=== PATIENT | male | born 1940 | race American Indian/Alaskan Native ===

== ENCOUNTER 2018-06-08 02:07 | Inpatient (IN) | payer MEDICARE, OTHER ==
[2018-06-08] MEDS ORDERED: NACL 0.9% 500 ML 500 ML IV ONE (02:27)
[2018-06-08] MEDS ORDERED: DUONEB *Not for PRN Use IH ONE (02:29)
[2018-06-08] MEDS ORDERED: ATIVAN ONE (02:43)
[2018-06-08] MEDS: ATIVAN IV ONE ×2 (02:49→07:35)
[2018-06-08] MEDS ORDERED: CARDIZEM IV ONE ×2 (02:51→02:52)
[2018-06-08 03:12] LABS: Basophils % (Auto) 0.8 % (0.0-1.8); Eosinophils # (Auto) 0.1 K/mm3 (0.0-0.4); Eosinophils % (Auto) 1.2 % (0.0-4.3); Hematocrit 41.2 % (35.5-45.6); Hemoglobin 13.5 gm/dl (11.8-15.2); Lymphocytes # (Auto) 2.3 K/mm3 (1.2-5.4); Mean Corpuscular HGB Conc 33 % (32-34); Mean Corpuscular Volume 97 fl (84-94); Monocytes # (Auto) 0.4 K/mm3 (0.0-0.8); Monocytes % (Auto) 8.2 % (0.0-7.3); Platelet Count 181 K/mm3 (140-440); Red Blood Count 4.26 M/mm3 (3.65-5.03); Red Cell Distribution Width 15.7 % (13.2-15.2)
[2018-06-08 03:15] LABS: Bilirubin,Urine NEG (Negative); Blood,Urine SM (Negative); Color,Urine Yellow (Yellow); Mucus,Urine FEW /HPF
[2018-06-08 03:33] LABS: Alanine Aminotransferase 22 units/L (7-56); Albumin 4.3 g/dL (3.9-5); BUN/Creatinine Ratio 20; Blood Urea Nitrogen 10 mg/dL (9-20); Calcium 9.6 mg/dL (8.4-10.2); Hemolysis Index 17
[2018-06-08] MEDS ORDERED: LASIX IV ONE (03:56)
--- NOTE | 2018-06-08 03:56 | XRay Report ---
FINAL REPORT PROCEDURE: XR CHEST 1V AP TECHNIQUE: Chest radiograph anteroposterior view. CPT 71503 HISTORY: cough, wheezing COMPARISON: No prior studies are available for comparison. FINDINGS: Heart: The heart size is enlarged. Mediastinum/Vessels: Normal. Lungs/Pleural space: Mild vascular congestion with bilateral lower lung atelectasis. No effusion or p neumothorax. Bony thorax: No acute osseous abnormality. Life support devices: None. IMPRESSION: Vascular congestion with bilateral lower lung atelectasis. Moderate cardiomegaly..
[2018-06-08] MEDS ORDERED: CARDIZEM 100 MG in D5W 80 ML IV SCH (04:00)
--- NOTE | 2018-06-08 04:03 | Emergency Department Report ---
ED Shortness of Breath HPI - General Chief Complaint: Medical Clearance Stated Complaint: FALL Time Seen by Provider: 06/08/18 02:24 Source: EMS Mode of arrival: Ambulatory Limitations: Altered Mental Status - History of Present Illness Initial Comments: Patient is a 78-year-old Male who is presenting from half-way for shortness of breath. Patient has a history of dementia diabetes hypertension as well as atrial fibrillation. Patient was noted to have a minor ground-level fall with no obvious signs of injury last night. Several hours later he was noted to have been combative with staff and was given Haldol. On arrival patient is inspiratory respiratory distress and is agitated. Patient has audible wheezing. Patient's according to records given has not had any nausea vomiting diarrhea time. It is unknown whether the patient has any chest pain. - Related Data Allergies Allergy/AdvReac Type Severity Reaction Status Date / Time No Known Allergies Allergy Verified 06/08/18 02:45 ED Review of Systems ROS: Stated complaint: FALL Other details as noted in HPI Comment: Unobtainable due to pts medical conditions ED Past Medical Hx - Past Medical History Hx Hypertension: Yes Hx Congestive Heart Failure: No Hx Diabetes: Yes Hx Dementia: Yes Additional medical history: Atrial Fibrillation - Social History Smoking Status: Former Smoker Substance Use Type: None ED Physical Exam - General Limitations: Altered Mental Status General appearance: alert, anxious - Head Head exam: Present: atraumatic, normocephalic - Eye Eye exam: Present: normal appearance, PERRL, EOMI - ENT ENT exam: Present: normal orophraynx, mucous membranes moist - Neck Neck exam: Present: normal inspection - Respiratory Respiratory exam: Present: respiratory distress, wheezes, rales. Absent: normal lung sounds bilaterally, rhonchi, stridor, accessory muscle use - Cardiovascular Cardiovascular Exam: Present: tachycardia, irregular rhythm. Absent: regular rate, normal rhythm, systolic murmur, diastolic murmur, rubs, gallop - GI/Abdominal GI/Abdominal exam: Present: soft, normal bowel sounds. Absent: distended, tenderness, guarding, rebound, rigid - Rectal Rectal exam: Present: deferred - Extremities Exam Extremities exam: Present: normal inspection - Back Exam Back exam: Present: normal inspection - Neurological Exam Neurological exam: Present: alert, altered (hx of demential) - Psychiatric Psychiatric exam: Present: normal affect, normal mood - Skin Skin exam: Present: warm, dry, intact, normal color. Absent: rash ED Course Vital Signs 06/08/18 06/08/18 06/08/18 02:24 02:46 02:50 Pulse Rate 175 H 163 H Pulse Rate [ Posterior] Respiratory 22 28 H Rate Respiratory Rate [Posterior ] Blood Pressure 117/81 Blood Pressure 117/81 [Right] O2 Sat by Pulse 100 98 100 Oximetry 06/08/18 06/08/18 06/08/18 02:51 02:52 03:00 Pulse Rate 114 H Pulse Rate [ 87 Posterior] Respiratory 28 H Rate Respiratory 22 Rate [Posterior ] Blood Pressure 141/86 Blood Pressure [Right] O2 Sat by Pulse 100 97 Oximetry 06/08/18 06/08/18 03:04 03:16 Pulse Rate 163 H 108 H Pulse Rate [ Posterior] Respiratory 20 Rate Respiratory Rate [Posterior ] Blood Pressure 117/81 116/88 Blood Pressure [Right] O2 Sat by Pulse 98 Oximetry ED Medical Decision Making - Lab Data Result diagrams: 06/08/18 02:51 06/08/18 02:51 Lab Results 06/08/18 06/08/18 06/08/18 Range/Units 02:27 02:51 02:51 WBC 4.6 (4.5-11.0) K/mm3 RBC 4.26 (3.65-5.03) M/mm3 Hgb 13.5 (11.8-15.2) gm/dl Hct 41.2 (35.5-45.6) % MCV 97 H (84-94) fl MCH 32 (28-32) pg MCHC 33 (32-34) % RDW 15.7 H (13.2-15.2) % Plt Count 181 (140-440) K/mm3 Lymph % (Auto) 49.0 H (13.4-35.0) % [place] % (Auto) 8.2 H (0.0-7.3) % Eos % (Auto) 1.2 (0.0-4.3) % Baso % (Auto) 0.8 (0.0-1.8) % Lymph # 2.3 (1.2-5.4) K/mm3 [place] # 0.4 (0.0-0.8) K/mm3 Eos # 0.1 (0.0-0.4) K/mm3 Baso # 0.0 (0.0-0.1) K/mm3 Seg Neutrophils % 40.8 (40.0-70.0) % Seg Neutrophils # 1.9 (1.8-7.7) K/mm3 Sodium 143 (137-145) mmol/L Potassium 3.9 (3.6-5.0) mmol/L Chloride 102.6 (98-107) mmol/L Carbon Dioxide 26 (22-30) mmol/L Anion Gap 18 mmol/L BUN 10 (9-20) mg/dL Creatinine 0.5 L (0.8-1.5) mg/dL Estimated GFR > 60 ml/min BUN/Creatinine Ratio 20 % Glucose 144 H (75-100) mg/dL Lactic Acid (0.7-2.0) mmol/L Calcium 9.6 (8.4-10.2) mg/dL Total Bilirubin 1.00 (0.1-1.2) mg/dL AST 27 (5-40) units/L ALT 22 (7-56) units/L Alkaline Phosphatase 45 (35-129) units/L Troponin T (0.00-0.029) ng/mL NT-Pro-B Natriuret Pep (0-900) pg/mL Total Protein 7.4 (6.3-8.2) g/dL Albumin 4.3 (3.9-5) g/dL Albumin/Globulin Ratio 1.4 % Urine Color Yellow (Yellow) Urine Turbidity Clear (Clear) Urine pH 5.0 (5.0-7.0) Ur Specific [place] 1.018 (1.003-1.030) Urine Protein 100 mg/dl (Negative) mg/dL Urine Glucose (UA) Neg (Negative) mg/dL Urine Ketones Neg (Negative) mg/dL Urine Blood Sm (Negative) Urine Nitrite Neg (Negative) Urine Bilirubin Neg (Negative) Urine Urobilinogen 2.0 (<2.0) mg/dL Ur Leukocyte Esterase Neg (Negative) Urine WBC (Auto) 3.0 (0.0-6.0) /HPF Urine RBC (Auto) 8.0 (0.0-6.0) /HPF Urine Mucus Few /HPF 06/08/18 06/08/18 Range/Units 02:51 02:56 WBC (4.5-11.0) K/mm3 RBC (3.65-5.03) M/mm3 Hgb (11.8-15.2) gm/dl Hct (35.5-45.6) % MCV (84-94) fl MCH (28-32) pg MCHC (32-34) % RDW (13.2-15.2) % Plt Count (140-440) K/mm3 Lymph % (Auto) (13.4-35.0) % [place] % (Auto) (0.0-7.3) % Eos % (Auto) (0.0-4.3) % Baso % (Auto) (0.0-1.8) % Lymph # (1.2-5.4) K/mm3 [place] # (0.0-0.8) K/mm3 Eos # (0.0-0.4) K/mm3 Baso # (0.0-0.1) K/mm3 Seg Neutrophils % (40.0-70.0) % Seg Neutrophils # (1.8-7.7) K/mm3 Sodium (137-145) mmol/L Potassium (3.6-5.0) mmol/L Chloride (98-107) mmol/L Carbon Dioxide (22-30) mmol/L Anion Gap mmol/L BUN (9-20) mg/dL Creatinine (0.8-1.5) mg/dL Estimated GFR ml/min BUN/Creatinine Ratio % Glucose (75-100) mg/dL Lactic Acid 2.30 H* (0.7-2.0) mmol/L Calcium (8.4-10.2) mg/dL Total Bilirubin (0.1-1.2) mg/dL AST (5-40) units/L ALT (7-56) units/L Alkaline Phosphatase (35-129) units/L Troponin T < 0.010 (0.00-0.029) ng/mL NT-Pro-B Natriuret Pep 8694 H (0-900) pg/mL Total Protein (6.3-8.2) g/dL Albumin (3.9-5) g/dL Albumin/Globulin Ratio % Urine Color (Yellow) Urine Turbidity (Clear) Urine pH (5.0-7.0) Ur Specific [place] (1.003-1.030) Urine Protein (Negative) mg/dL Urine Glucose (UA) (Negative) mg/dL Urine Ketones (Negative) mg/dL Urine Blood (Negative) Urine Nitrite (Negative) Urine Bilirubin (Negative) Urine Urobilinogen (<2.0) mg/dL Ur Leukocyte Esterase (Negative) Urine WBC (Auto) (0.0-6.0) /HPF Urine RBC (Auto) (0.0-6.0) /HPF Urine Mucus /HPF - EKG Data -: EKG Interpreted by Me - EKG Data 06/08/18 04:06 EKG showed atrial fibrillation with rapid rate at 188. [place] is leftward other intervals shows left anterior fascicular block but no other interval changes. There is no ST segment elevations or depressions present. Time of interpretation is 245. EKG was performed after diltiazem was given which showed A. fib with RVR with a rate of 112. There are occasional areas that possibly have a sinus origin however the majority of the EKG appears to be atrial fibrillation. There is again still no ST elevation or depressions. There is a left anterior fascicular block present. There is a lateral T wave flattening. [place] is leftward. Tylenol interpretation is 335 - Radiology Data Radiology results: image reviewed (chest x-ray shows cardiomegaly with prominent vascular congestion and pulmonary edema) - Medical Decision Making Patient's x-ray and BMP both support the diagnosis of congestive heart failure. Patient will be given 40 Lasix. Patient also will be started on a diltiazem drip. The bolus of diltiazem did slow the patient's rate significantly however at the time of admission rate has started to increase into the 130s range. Patient is more calm at this time. Patient to be admitted to the hospital under Dr. Cosme Critical Care Time: Yes (30) Critical care attestation.: If time is entered above; I have spent that time in minutes in the direct care of this critically ill patient, excluding procedure time. ED Disposition Clinical Impression: Atrial fibrillation with rapid ventricular response, Agitation Congestive heart failure Qualifiers: Heart failure type: unspecified Heart failure chronicity: acute Qualified Code(s): I50.9 - Heart failure, unspecified Pulmonary edema Qualifiers: Chronicity: acute Qualified Code(s): J81.0 - Acute pulmonary edema Dementia Qualifiers: Dementia type: Alzheimer's disease Alzheimer's disease onset: unspecified onset Dementia behavioral disturbance: with behavioral disturbance Qualified Code(s): G30.9 - Alzheimer's disease, unspecified; F02.81 - Dementia in other diseases classified elsewhere with behavioral disturbance Disposition: 09 OP ADMIT IP TO THIS HOSP Is pt being admited?: Yes Does the pt Need Aspirin: No Condition: Serious Instructions: Pulmonary Edema (ED) Referrals: PRIMARY CARE, [Primary Care Provider] - 3-5 Days Time of Disposition: 04:11
[2018-06-08] MEDS ORDERED: TYLENOL PO PRN (05:01)
[2018-06-08] MEDS ORDERED: PROVENTIL IH PRN (05:01)
[2018-06-08] MEDS ORDERED: ZOFRAN IV PRN (05:03)
[2018-06-08] MEDS ORDERED: D50W (25GM) Syringe IV PRN (05:03)
[2018-06-08] MEDS: NITRO-BID 2% TP SCH ×2 (06:58→20:04)
--- NOTE | 2018-06-08 07:02 | History and Physical Report ---
CHIEF COMPLAINT: Difficulty in breathing. Other complaints include agitation. HISTORY OF PRESENT ILLNESS: The patient is a 78-year-old [facility] after he was found to be having difficulty in breathing with agitation following a fall. There was no history of injury. No history of chest pain, fever, or chills. Also, there was no history of nausea or vomiting. The patient was brought to the Emergency Room where he presents with difficulty in breathing and agitation with wheezing and irregular heartbeat. PAST MEDICAL HISTORY: Pertinent for dementia. Also, the patient has past medical history of diabetes mellitus, hypertension, atrial fibrillation. PAST SURGICAL HISTORY: Unremarkable. FAMILY HISTORY: Noncontributory. SOCIAL HISTORY: [facility]. He used to smoke cigarettes, but does not smoke currently and does not drink or use illicit drugs. MEDICATIONS: The patient's home medications are not known at this time. ALLERGIES: There are no known drug allergies. REVIEW OF SYSTEMS: CONSTITUTIONAL: There is no fever, no chills, no diaphoresis. HEENT: There is no headache or sore throat. CARDIOVASCULAR SYSTEM: There is no chest pain or orthopnea. RESPIRATORY SYSTEM: Shortness of breath is present. Wheezing is present. There is no cough. GASTROINTESTINAL SYSTEM: There is no nausea, no vomiting, no abdominal pain, diarrhea or constipation. NEUROLOGICAL SYSTEM: Agitation noted. MUSCULOSKELETAL SYSTEM: There is no joint pain or swelling. DERMATOLOGICAL SYSTEM: There is no skin rash or itching. GENITOURINARY SYSTEM: There is no dysuria, hematuria, or flank pain. Rest of system review is normal. PHYSICAL EXAMINATION: GENERAL: At the time of exam, the patient was found to be lethargic, arousable and not in acute distress. VITAL SIGNS: At the initial time of presentation shows normal temperature with pulse of 175, respirations 22, blood pressure 117/81, O2 sat of 98% on room air. HEENT: Show pupils to be equal, round, reactive to light and accommodating. Extraocular muscles intact. NECK: Supple with no JVD or carotid bruit. CARDIOVASCULAR SYSTEM: Show an irregularly irregular heart rhythm with rapid heartbeat. RESPIRATORY SYSTEM: Show good air entry on both sides of the lungs with bibasilar rales. GASTROINTESTINAL SYSTEM: Show abdomen to be full, soft, nontender with no organomegaly or rigidity. NEUROLOGICAL: Shows no focal deficit. MUSCULOSKELETAL SYSTEM: Show no joint swelling or tenderness. DERMATOLOGICAL SYSTEM: Show no skin rash. GENITOURINARY SYSTEM: Showing no costovertebral angle tenderness. PERTINENT LABORATORY AND IMAGING STUDIES: The patient had chest x-ray done that shows vascular congestion with bilateral lower lung anectasis and moderate cardiomegaly. The patient's lab results shows CBC with normal white count, normal hemoglobin and normal hematocrit with CBC differential showing high lymphocyte count of 49% with high monocyte count of 8.2%. The patient's chemistry initially show elevated lactic acid level of 2.3 with repeat lactic acid showing normal value. The patient's brain natriuretic level is high with a value of 8694. Troponin level came back unremarkable. The patient's urinalysis was unremarkable. DIAGNOSES: 1. Atrial fibrillation with rapid ventricular rate. 2. Congestive heart failure, new onset. PLAN OF ACTION: 1. The patient will be admitted to telemetry. 2. The patient will have cardiac enzyme involving troponin, total CK and CK-MB checked q. 6 hours x 2 more levels. 3. The patient will have 2D echo done this morning. 4. The patient will have Accu-Chek before meals and at bedtime, followed by low-dose sliding scale using regular insulin coverage. 5. The patient will continue IV Cardizem drip started in the Emergency Room which will be titrated to keep heart rate below 100. 6. The patient's diet will be consistent carbohydrate, low sodium diet. 7. The patient will be on carvedilol 3.125 mg by mouth q. 12 hours and also be on lisinopril 5 mg by mouth daily. 8. The patient will be on IV Lasix 40 mg daily and will be on nitro paste half inch to anterior chest wall q.6 hours. 9. The patient will be on IV Zofran 4 mg every 8 hours as needed for nausea and vomiting and will be on albuterol nebulizer 2.5 mg every 6 hours as needed for shortness of breath. 10. The patient's DVT prophylaxis will be through heparin 5000 units subcutaneous q. 12 hours and the patient's home medications will be reconciled when they are known. JOB# [id number] OCN/NTS
[2018-06-08] MEDS: HumuLIN R SUB-Q SCH ×3 (07:30→23:34)
[2018-06-08] MEDS ORDERED: COREG PO SCH ×3 (10:00→13:15)
[2018-06-08] MEDS ORDERED: CARDIZEM/D5W 100MG/100ML 100 MG/100 ML BAG IV SCH (12:00)
[2018-06-08 12:06] LABS: Creatine Kinase MB 1.8 ng/mL (0.0-4.0)
--- NOTE | 2018-06-08 15:39 | Consultation ---
History of Present Illness Consult date: 06/08/18 Requesting physician: GISELA MACK Consult reason: atrial fibrillation History of present illness: The patient is a 78-year-old male with a past medical history of atrial fibrillation, HTN, DM, advanced dementia. He is combative and unable to provide HPI on evaluation due to dementia and thus HPI is obtained per the chart and per his at bedside. Pt presented from group home for shortness of breath. Patient was noted to have a minor ground-level fall with no obvious signs of injury last night. Several hours later he was noted to have been combative with staff and was given Haldol.On arrival pt was noted to be in respiratory distress and was combative. Per pt's , pt has been refusing to eat lately. Pt was also noted to be in paroxysmal atrial fibrillation with RVR and thus cardiology has been consulted. CXR c/w HF, pro-BNP >8K. Past History Past Medical History: atrial fib, diabetes, hypertension, other (advanced dementia) Medications and Allergies Allergies Allergy/AdvReac Type Severity Reaction Status Date / Time No Known Allergies Allergy Verified 06/08/18 02:45 Home Medications Medication Instructions Recorded Confirmed Last Taken Type Aspirin EC [Aspirin Enteric Coated 81 mg PO QDAY 06/08/18 06/08/18 1 Day Ago History TAB] ~06/07/18 Cholecalciferol (Vitamin D3) 1,000 unit PO QDAY 06/08/18 06/08/18 1 Day Ago History [Vitamin D3] ~06/07/18 Docusate Calcium 10 ml PO QDAY 06/08/18 06/08/18 1 Day Ago History ~06/07/18 Gabapentin [Neurontin] 300 mg PO BID 06/08/18 06/08/18 1 Day Ago History ~06/07/18 Haloperidol 0.5 mg PO BID PRN MDD 1 mg 06/08/18 06/08/18 1 Day Ago History ~06/07/18 Ibuprofen 600 mg PO Q6HR PRN MDD 1200 06/08/18 06/08/18 1 Day Ago History ~06/07/18 LORazepam [Ativan] 1 mg PO Q4HR PRN 06/08/18 06/08/18 1 Day Ago History ~06/07/18 Lisinopril [Prinivil] 5 mg PO QDAY 06/08/18 06/08/18 1 Day Ago History ~06/07/18 Metformin HCl [Glucophage] 1,000 mg PO BID 06/08/18 06/08/18 1 Day Ago History ~06/07/18 Mirtazapine 7.5 mg PO QHS MDD 7.5 06/08/18 06/08/18 1 Day Ago History ~06/07/18 Vitamin B-1 100 mg PO QDAY 06/08/18 06/08/18 1 Day Ago History ~06/07/18 risperiDONE [RisperDAL] 1 mg PO QHS 06/08/18 06/08/18 1 Day Ago History ~06/07/18 Active Meds: Active Medications Acetaminophen (Tylenol) 650 mg PO Q4H PRN PRN Reason: Headache Albuterol (Proventil) 2.5 mg IH Q6H PRN PRN Reason: Shortness Of Breath Aspirin (Halfprin Ec) 81 mg PO QDAY [facility] Carvedilol (Coreg) 6.25 mg PO BID [facility] Dextrose (D50w (25gm) Syringe) 50 ml IV PRN PRN PRN Reason: Hypoglycemia Furosemide (Lasix) 40 mg IV QDAY [facility] Haloperidol Lactate (Haldol) 2.5 mg IM Q6H PRN PRN Reason: Agitation Heparin Sodium (Porcine) (Heparin) 5,000 unit SUB-Q Q12HR [facility] Diltiazem HCl (Cardizem/D5w 100mg/100ml) 100 mg in 100 mls @ 5 mls/hr IV DAILY [facility]; Protocol Insulin Human Regular (Humulin R) 0 units SUB-Q [facility]; Protocol Last Admin: 06/08/18 07:30 Dose: Not Given Documented by: Insulin Human Regular ([facility]ulin R) [facility]; Protocol Lisinopril (Zestril) 5 mg PO DAILY [facility] Mirtazapine (Remeron) 7.5 mg PO QHS [facility] Morphine Sulfate (Morphine) 2 mg IV Q4H PRN PRN Reason: Pain, Moderate (4-6) Nitroglycerin (Nitro-Bid 2%) 0.5 inch TP QIDNTG [facility]; Protocol Last Admin: 06/08/18 06:58 Dose: 0.5 inch Documented by: Ondansetron HCl (Zofran) 4 mg IV Q8H PRN PRN Reason: Nausea And Vomiting Risperidone (Risperdal) 1 mg PO QHS [facility] Review of Systems ROS unobtainable: due to mental status Physical Examination Vital Signs Pulse Ox 100 06/08/18 02:24 General appearance: other (agitated) Cardiac: Positive: irregularly irregular, S1/S2, Tachycardia Lungs: Positive: Decreased Breath Sounds Neuro: Positive: Other (unable to assess). Negative: Weakness Skin: Negative: Rash Extremities: Absent: edema Results 06/08/18 02:51 06/08/18 02:51 Cardiac Enzymes 06/08/18 06/08/18 06/08/18 Range/Units 02:51 05:41 11:26 AST 27 (5-40) units/L CK-MB (CK-2) 2.0 1.8 (0.0-4.0) ng/mL CBC 06/08/18 Range/Units 02:51 WBC 4.6 (4.5-11.0) K/mm3 RBC 4.26 (3.65-5.03) M/mm3 Hgb 13.5 (11.8-15.2) gm/dl Hct 41.2 (35.5-45.6) % Plt Count 181 (140-440) K/mm3 Lymph # 2.3 (1.2-5.4) K/mm3 [place] # 0.4 (0.0-0.8) K/mm3 Eos # 0.1 (0.0-0.4) K/mm3 Baso # 0.0 (0.0-0.1) K/mm3 Comprehensive Metabolic Panel 06/08/18 Range/Units 02:51 Sodium 143 (137-145) mmol/L Potassium 3.9 (3.6-5.0) mmol/L Chloride 102.6 (98-107) mmol/L Carbon Dioxide 26 (22-30) mmol/L BUN 10 (9-20) mg/dL Creatinine 0.5 L (0.8-1.5) mg/dL Glucose 144 H (75-100) mg/dL Calcium 9.6 (8.4-10.2) mg/dL AST 27 (5-40) units/L ALT 22 (7-56) units/L Alkaline Phosphatase 45 (35-129) units/L Total Protein 7.4 (6.3-8.2) g/dL Albumin 4.3 (3.9-5) g/dL - Imaging and Cardiology Echo: pending EKG: report reviewed, image reviewed EKG interpretations - Telemetry EKG Rhythm: Atrial Fibrillation - EKG Supraventricular dysrhythmia: atrial fibrillation Assessment and Plan Optimize HR - initiate PO lopressor and wean cardizem gtt off as tolerated. Obtain echo. Check thyroid profile and serum Mg. Pt is on hospice. He is currently not a candidate for mover systemic AC given advanced dementia and high risk for falls. Cont IV diuretics. Assessment and plan reviewed with pt's at bedside and she is agreeable. The patient has been seen in conjunction with Dr. Aguirre who agrees with the assessment and plan of care. - Patient Problems (1) Paroxysmal atrial fibrillation with rapid ventricular response Current Visit: Yes Status: Acute (2) Respiratory distress Current Visit: Yes Status: Acute (3) Acute heart failure Current Visit: Yes Status: Acute (4) Altered mental status Current Visit: Yes Status: Acute (5) Advanced dementia Current Visit: Yes Status: Chronic (6) HTN (hypertension) Current Visit: Yes Status: Chronic (7) Diabetes Current Visit: Yes Status: Chronic
[2018-06-08] MEDS: MORPHINE IV PRN (15:50)
--- NOTE | 2018-06-08 15:54 | Event Note ---
Date: 06/08/18 Patient seen and examined. The patient is a 78-year-old male with a past medical history of atrial fibrillation, HTN, DM, advanced dementia [facility]-level fall with no obvious signs of injury last night and HR increased upto @ 190s. On arrival pt was noted to be in atrial bib with RVR and was combative. CXR c/w HF, pro-BNP >8K, he was placed on cardizem drip and admitted to tele. But his cardizem drip requiring titration, cardiology consulted and he will be transferred to ICU. Patient remained combati ve, will place on low dose haldol as needed, was at bedside updated and explained plan and management in details. She wishes for DNR but wants patient to get better and go back to assisted living facility.
[2018-06-08] MEDS: LASIX IV SCH (18:10)
[2018-06-08] MEDS: HEPARIN SUB-Q SCH ×2 (18:10→23:45)
[2018-06-08] MEDS: ZESTRIL PO SCH (20:04)
[2018-06-09] MEDS ORDERED: ZOSYN/NS 4.5GM/100ML 4.5 GM/100 ML VIAL IV SCH (00:01)
[2018-06-09] MEDS: LOPRESSOR PO SCH ×4 (00:16→20:33)
[2018-06-09] MEDS: RisperDAL PO SCH ×2 (00:17→21:58)
[2018-06-09] MEDS: REMERON PO SCH ×2 (00:17→21:59)
[2018-06-09] MEDS: HumuLIN R SUB-Q SCH ×4 (00:19→18:32)
[2018-06-09] MEDS: NITRO-BID 2% TP SCH ×5 (00:20→18:31)
[2018-06-09] MEDS: HALFPRIN EC PO SCH ×2 (00:20→11:04)
[2018-06-09] MEDS ORDERED: LOPRESSOR IV ONE (01:00)
[2018-06-09] MEDS: ZOSYN/NS 3.375GM/50ML 3.375 GM/50 ML BAG IV SCH ×4 (01:12→18:31)
[2018-06-09] MEDS: CARDIZEM/D5W 100MG/100ML 100 MG/100 ML BAG IV SCH ×2 (02:18)
[2018-06-09 05:13] LABS: BUN/Creatinine Ratio 14; Blood Urea Nitrogen 7 mg/dL (9-20); Hemolysis Index 9
[2018-06-09] MEDS ORDERED: CARDIZEM/D5W 100MG/100ML 100 MG/100 ML BAG IV SCH (08:00)
--- NOTE | 2018-06-09 09:29 | Consultation ---
History of Present Illness Consult date: 06/09/18 Requesting physician: GISELA MACK Reason for consult: other (Atrial fibrillation with RVR requiring cardizem infusion, hypoxia) History of present illness: Patient is a 78-year-old Male who is presenting from [facility] for shortness of breath. Patient has a history of dementia diabetes hypertension as well as atrial fibrillation. Patient was noted to have a minor ground-level fall with no obvious signs of injury. Several hours later he was noted to have been combative with staff and was given Haldol. Was bought into the [facility] ED for evaluation. Admitted to the telemetry. patient has a hisotroy of chronic atrial fibrillation, but developed a RVR and cardizem infusion was started. He has been transferred to the ICU for the management of his atrial fibrillation with RVR Patient was seen and examined. Vitals, labs, medications, chart and imaging reviewed. Further history from the patient is limited secondary to dementia Past History Past Medical History: atrial fib, diabetes, hypertension, other (advanced dementia) Medications and Allergies Allergies Allergy/AdvReac Type Severity Reaction Status Date / Time No Known Allergies Allergy Verified 06/08/18 02:45 Home Medications Medication Instructions Recorded Confirmed Last Taken Type Aspirin EC [Aspirin Enteric Coated 81 mg PO QDAY 06/08/18 06/08/18 1 Day Ago History TAB] ~06/07/18 Cholecalciferol (Vitamin D3) 1,000 unit PO QDAY 06/08/18 06/08/18 1 Day Ago History [Vitamin D3] ~06/07/18 Docusate Calcium 10 ml PO QDAY 06/08/18 06/08/18 1 Day Ago History ~06/07/18 Gabapentin [Neurontin] 300 mg PO BID 06/08/18 06/08/18 1 Day Ago History ~06/07/18 Haloperidol 0.5 mg PO BID PRN MDD 1 mg 06/08/18 06/08/18 1 Day Ago History ~06/07/18 LORazepam [Ativan] 1 mg PO Q4HR PRN 06/08/18 06/08/18 1 Day Ago History ~06/07/18 Lisinopril [Prinivil] 5 mg PO QDAY 06/08/18 06/08/18 1 Day Ago History ~06/07/18 Metformin HCl [Glucophage] 1,000 mg PO BID 06/08/18 06/08/18 1 Day Ago History ~06/07/18 Mirtazapine 7.5 mg PO QHS MDD 7.5 06/08/18 06/08/18 1 Day Ago History ~06/07/18 Vitamin B-1 100 mg PO QDAY 06/08/18 06/08/18 1 Day Ago History ~06/07/18 risperiDONE [RisperDAL] 1 mg PO QHS 06/08/18 06/08/18 1 Day Ago History ~06/07/18 Metoprolol [Lopressor TAB] 100 mg PO BID tablet 06/13/18 Unknown Rx Active Meds: Active Medications Acetaminophen (Tylenol) 650 mg PO Q4H PRN PRN Reason: Headache Albuterol (Proventil) 2.5 mg IH Q6H PRN PRN Reason: Shortness Of Breath Aspirin (Halfprin Ec) 81 mg PO QDAY [facility] Last Admin: 06/09/18 00:20 Dose: Not Given Documented by: Dextrose (D50w (25gm) Syringe) 50 ml IV PRN PRN PRN Reason: Hypoglycemia Furosemide (Lasix) 40 mg IV QDAY [facility] Last Admin: 06/08/18 18:10 Dose: Not Given Documented by: Haloperidol Lactate (Haldol) 2.5 mg IM Q6H PRN PRN Reason: Agitation Heparin Sodium (Porcine) (Heparin) 5,000 unit SUB-Q Q12HR [facility] Last Admin: 06/08/18 23:45 Dose: 5,000 unit Documented by: Piperacillin Sod/Tazobactam Sod (Zosyn/Ns 3.375gm/50ml) 3.375 gm in 50 mls @ 100 mls/hr IV Q6HR [facility]; Protocol Last Admin: 06/09/18 05:59 Dose: 100 mls/hr Documented by: Diltiazem HCl (Cardizem/D5w 100mg/100ml) 100 mg in 100 mls @ 5 mls/hr IV TITR [facility]; Protocol Insulin Human Regular (Humulin R) 0 units SUB-Q AC [facility]; Protocol Last Admin: 06/09/18 09:01 Dose: Not Given Documented by: Insulin Human Regular (Humulin R) 0 units SUB-Q QHS [facility]; Protocol Last Admin: 06/08/18 23:34 Dose: Not Given Documented by: Lisinopril (Zestril) 5 mg PO DAILY [facility] Last Admin: 06/08/18 20:04 Dose: Not Given Documented by: Metoprolol Tartrate (Lopressor) 25 mg PO TID [facility] Last Admin: 06/09/18 00:16 Dose: Not Given Documented by: Mirtazapine (Remeron) 7.5 mg PO QHS [facility] Last Admin: 06/09/18 00:17 Dose: Not Given Documented by: Morphine Sulfate (Morphine) 2 mg IV Q4H PRN PRN Reason: Pain, Moderate (4-6) Last Admin: 06/08/18 15:50 Dose: 2 mg Documented by: Nitroglycerin (Nitro-Bid 2%) 0.5 inch TP QIDNTG [facility]; Protocol Last Admin: 06/09/18 06:05 Dose: 0.5 inch Documented by: Ondansetron HCl (Zofran) 4 mg IV Q8H PRN PRN Reason: Nausea And Vomiting Risperidone (Risperdal) 1 mg PO QHS [facility] Last Admin: 06/09/18 00:17 Dose: Not Given Documented by: Physical Examination Vital signs: Vital Signs Pulse Ox 100 06/08/18 02:24 General appearance: agitated, other Eyes: non-icteric ENT: oropharynx moist Neck: supple, no lymphadenopathy, no JVD Effort: mildly labored Ascultation: Bilateral: diminished breath sounds, rales (lung bases) Cardiovascular: irregular rhythm Gastrointestinal: normoactive bowel sounds, soft, non-tender, non-distended Integumentary: normal Extremities: no cyanosis, no edema, pink and warm, no ischemia or petechiae non-focal exam, unable to assess Results - Laboratory Findings CBC and BMP: 06/12/18 04:54 06/12/18 04:54 Abnormal lab findings: Abnormal Labs 06/08/18 06/08/18 06/08/18 02:51 02:51 02:51 MCV 97 H RDW 15.7 H Lymph % (Auto) 49.0 H [place] % (Auto) 8.2 H BUN Creatinine 0.5 L Glucose 144 H POC Glucose Lactic Acid 2.30 H* Total Creatine Kinase NT-Pro-B Natriuret Pep 06/08/18 06/08/18 06/08/18 02:56 05:41 07:29 MCV RDW Lymph % (Auto) [place] % (Auto) BUN Creatinine Glucose POC Glucose 113 H Lactic Acid Total Creatine Kinase 51 L NT-Pro-B Natriuret Pep 8694 H 06/08/18 06/09/18 11:26 03:46 MCV RDW Lymph % (Auto) [place] % (Auto) BUN 7 L Creatinine 0.5 L Glucose POC Glucose Lactic Acid Total Creatine Kinase 50 L NT-Pro-B Natriuret Pep - Diagnostic Findings Chest x-ray: image reviewed (Cardiomegaly) Assessment and Plan Paroxysmal atrial fibrillation with rapid ventricular response Acute HFrEF (heart failure with reduced ejection fraction) with Cardiomyopathy -Echo showed EF 25-30% - Thyroid profile WNL. Respiratory distress Altered mental status with Advanced dementia HTN (hypertension), Chronic Diabetes type 2 Hypernatremia - monitor at ICU, place a small bowel feeding tube. Once position is confirmed, initiate oral AV greg blockers - wean off cardizem infusion for HR<100 -VTE prophylaxis -Aspiration precautions -Free water via feeding tube -Not a candidate for systemic anticoagulation per cardiology -Optimize heart failure measures -Nutritional support, consult placed -GROUP ACCOUNT DIRECTOR to evaluate swallow function -PT/OT to evaluate and treat. 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 CODE STATUS: DNAR
[2018-06-09] MEDS: HALDOL IM PRN (09:30)
--- NOTE | 2018-06-09 09:46 | XRay Report ---
AP ABDOMEN: HISTORY: Nasogastric tube placement. The feeding tube is coiled in the body of the stomach. A large amount of stool is present in the colon. No obvious bowel obstruction or free air. Mild cardiomegaly is suspected at the lung bases. IMPRESSION: Feeding tube terminates in the mid stomach. Moderate to severe fecal retention.
[2018-06-09] MEDS: HEPARIN SUB-Q SCH ×2 (11:03→21:58)
[2018-06-09] MEDS: ZESTRIL PO SCH (11:03)
[2018-06-09] MEDS: LASIX IV SCH (11:03)
[2018-06-09] MEDS ORDERED: LOPRESSOR PO SCH (11:39)
--- NOTE | 2018-06-09 11:40 | Progress Note ---
Assessment and Plan Echo reviewed - EF 25-30%, mild LVH, abnormal diastolic function, LA mildly dilated, RA mildly dilated, mild to mod MR, mod TR, RVSP 41mmHg. Optimize HR - cont PO lopressor via feeding tube and wean cardizem gtt off as tolerated. Thyroid profile WNL. Pt is on hospice and is DNR code status. He is currently not a candidate for group home systemic AC or aggressive cardiac evaluation/management given advanced dementia, high risk for falls and overall poor prognosis. Cont IV diuretics. Assessment and plan reviewed with pt's at bedside and she is agreeable. The patient has been seen in conjunction with Dr. Aguirre who agrees with the assessment and plan of care. - Patient Problems (1) Paroxysmal atrial fibrillation with rapid ventricular response Current Visit: Yes Status: Acute (2) Acute HFrEF (heart failure with reduced ejection fraction) Current Visit: Yes Status: Acute (3) Cardiomyopathy Current Visit: Yes Status: Chronic (4) Respiratory distress Current Visit: Yes Status: Acute (5) Altered mental status Current Visit: Yes Status: Acute (6) Advanced dementia Current Visit: Yes Status: Chronic (7) HTN (hypertension) Current Visit: Yes Status: Chronic (8) Diabetes Current Visit: Yes Status: Chronic (9) DNR (do not resuscitate) Current Visit: Yes Status: Chronic Subjective Date of service: 06/09/18 Principal diagnosis: AFib RVR Interval history: pt resting in bed, lethargic, restrained. in AFib with HR 80s on telemetry, cardizem gtt infusing at 5mg/hr. Objective Last Vital Signs Temp 98.4 F 06/09/18 08:00 Pulse 92 H 06/09/18 11:03 Resp 15 06/09/18 10:01 BP 137/84 06/09/18 11:03 Pulse Ox 97 06/09/18 10:01 - Physical Examination General: Other (lethargic, restrained) Cardiac: Positive: irregularly irregular, S1/S2 Lungs: Positive: Decreased Breath Sounds Neuro: Positive: Other (lethargic, restrained). Negative: Weakness Skin: Negative: Rash Extremities: Absent: edema - Labs and Meds Cardiac Enzymes 06/08/18 Range/Units 11:26 CK-MB (CK-2) 1.8 (0.0-4.0) ng/mL Comprehensive Metabolic Panel 06/09/18 Range/Units 03:46 Sodium 145 (137-145) mmol/L Potassium 3.6 (3.6-5.0) mmol/L Chloride 105.7 (98-107) mmol/L Carbon Dioxide 27 (22-30) mmol/L BUN 7 L (9-20) mg/dL Creatinine 0.5 L (0.8-1.5) mg/dL Glucose 95 (75-100) mg/dL Calcium 9.0 (8.4-10.2) mg/dL - Imaging and Cardiology EKG: report reviewed, image reviewed Echo: report reviewed - Telemetry EKG Rhythm: Atrial Fibrillation
[2018-06-09] MEDS ORDERED: SIMPLE SYRUP FEEDTUBE PRN ×2 (12:45)
[2018-06-09] MEDS ORDERED: SODIUM BICARBONATE FEEDTUBE PRN (12:45)
[2018-06-09] MEDS ORDERED: PANCREAZE DR 10,500 UNIT FEEDTUBE PRN (12:45)
[2018-06-09] MEDS: MORPHINE IV PRN (14:48)
--- NOTE | 2018-06-09 15:28 | Progress Note ---
Assessment and Plan Paroxysmal atrial fibrillation with rapid ventricular response Acute HFrEF (heart failure with reduced ejection fraction) with Cardiomyopathy Respiratory distress Altered mental status with Advanced dementia Current Visit: Yes Status: Chronic HTN (hypertension), Chronic Diabetes type 2 DNR (do not resuscitate) - monitor at ICU - updated family at bedside in details, Pt was on hospice and is DNR code status. But family refuses hospice now - Echo showed EF 25-30%, cont PO lopressor via feeding tube and wean cardizem gtt off as tolerated. - Thyroid profile WNL. Per cardiology, he is currently not a candidate for group home systemic AC or aggressive cardiac evaluation/management given advanced dementia, high risk for falls and overall poor prognosis. - Cont IV diuretics. start TF, DVT Px Subjective Date of service: 06/09/18 Principal diagnosis: AFib RVR Interval history: Patient seen and examined agitated, on restraint, dobhoff on place Family at bedside, updated in details and answered all questions according to best of my knowledge Objective - Constitutional Vitals: Vital Signs - 12hr 06/09/18 06/09/18 06/09/18 03:30 03:41 03:51 Temperature Pulse Rate 85 90 87 Respiratory 18 12 16 Rate Blood Pressure 127/82 131/103 132/84 O2 Sat by Pulse 98 98 97 Oximetry 06/09/18 06/09/18 06/09/18 04:00 04:11 04:21 Temperature 97 F L Pulse Rate 73 72 77 Respiratory 14 12 16 Rate Blood Pressure 120/75 132/84 107/80 O2 Sat by Pulse 99 97 98 Oximetry 06/09/18 06/09/18 06/09/18 04:30 04:41 04:51 Temperature Pulse Rate 72 81 77 Respiratory 14 13 16 Rate Blood Pressure 112/77 112/77 113/74 O2 Sat by Pulse 100 100 100 Oximetry 06/09/18 06/09/18 06/09/18 05:00 05:11 05:21 Temperature Pulse Rate 83 88 90 Respiratory 13 17 13 Rate Blood Pressure 104/71 104/71 126/93 O2 Sat by Pulse 99 98 97 Oximetry 06/09/18 06/09/18 06/09/18 05:31 05:41 05:51 Temperature Pulse Rate 84 80 84 Respiratory 13 16 14 Rate Blood Pressure 124/82 126/93 118/78 O2 Sat by Pulse 99 98 100 Oximetry 06/09/18 06/09/18 06/09/18 06:01 06:05 06:11 Temperature Pulse Rate 84 97 H 108 H Respiratory 11 L 15 Rate Blood Pressure 128/86 128/86 128/86 O2 Sat by Pulse 96 99 Oximetry 06/09/18 06/09/18 06/09/18 06:21 06:30 06:41 Temperature Pulse Rate 137 H 109 H 111 H Respiratory 18 15 10 L Rate Blood Pressure 122/100 127/93 127/93 O2 Sat by Pulse 97 99 100 Oximetry 06/09/18 06/09/18 06/09/18 06:51 07:01 07:11 Temperature Pulse Rate 103 H 119 H 131 H Respiratory 9 L 11 L 13 Rate Blood Pressure 134/104 123/99 122/100 O2 Sat by Pulse 99 94 96 Oximetry 06/09/18 06/09/18 06/09/18 07:21 07:30 07:41 Temperature Pulse Rate 104 H 99 H 97 H Respiratory 15 17 10 L Rate Blood Pressure 155/114 150/99 155/114 O2 Sat by Pulse 99 95 96 Oximetry 06/09/18 06/09/18 06/09/18 07:50 08:00 08:11 Temperature 98.4 F Pulse Rate 133 H 100 H Respiratory 21 16 Rate Blood Pressure 154/114 154/114 154/114 O2 Sat by Pulse 99 97 98 Oximetry 06/09/18 06/09/18 06/09/18 08:21 08:31 08:41 Temperature Pulse Rate 139 H 139 H 130 H Respiratory 21 16 19 Rate Blood Pressure 164/129 166/136 166/136 O2 Sat by Pulse 98 95 99 Oximetry 06/09/18 06/09/18 06/09/18 08:51 09:01 09:11 Temperature Pulse Rate 131 H 127 H 105 H Respiratory 22 23 25 H Rate Blood Pressure 172/112 161/109 172/112 O2 Sat by Pulse 98 93 98 Oximetry 06/09/18 06/09/18 06/09/18 09:21 09:31 09:41 Temperature Pulse Rate 114 H 94 H 128 H Respiratory 19 22 19 Rate Blood Pressure 158/112 154/96 158/112 O2 Sat by Pulse 98 96 97 Oximetry 06/09/18 06/09/18 06/09/18 09:51 10:00 10:01 Temperature Pulse Rate 86 93 H 102 H Respiratory 18 15 Rate Blood Pressure 134/101 137/84 127/94 O2 Sat by Pulse 97 97 Oximetry 06/09/18 06/09/18 06/09/18 10:11 10:21 10:31 Temperature Pulse Rate 96 H 101 H 111 H Respiratory 18 17 8 L Rate Blood Pressure 154/96 155/107 146/98 O2 Sat by Pulse 97 97 98 Oximetry 06/09/18 06/09/18 06/09/18 10:41 10:51 11:00 Temperature Pulse Rate 107 H 90 91 H Respiratory 19 17 20 Rate Blood Pressure 146/98 118/82 137/84 O2 Sat by Pulse 96 100 100 Oximetry 06/09/18 06/09/18 06/09/18 11:03 11:11 11:21 Temperature Pulse Rate 92 H 87 76 Respiratory 15 13 Rate Blood Pressure 137/84 137/84 124/85 O2 Sat by Pulse 97 100 Oximetry 06/09/18 06/09/18 06/09/18 11:30 11:41 11:51 Temperature Pulse Rate 91 H 92 H 89 Respiratory 18 11 L 16 Rate Blood Pressure 134/92 134/92 138/94 O2 Sat by Pulse 97 100 99 Oximetry 06/09/18 06/09/18 06/09/18 12:00 12:11 12:21 Temperature 98.7 F Pulse Rate 82 85 81 Respiratory 20 25 H 14 Rate Blood Pressure 138/101 138/101 145/97 O2 Sat by Pulse 99 98 100 Oximetry 06/09/18 06/09/18 06/09/18 12:30 12:41 12:51 Temperature Pulse Rate 82 74 82 Respiratory 14 13 15 Rate Blood Pressure 147/93 147/93 126/75 O2 Sat by Pulse 96 99 100 Oximetry 06/09/18 06/09/18 06/09/18 13:00 13:11 13:21 Temperature Pulse Rate 80 82 85 Respiratory 15 25 H 14 Rate Blood Pressure 126/75 144/101 126/75 O2 Sat by Pulse 100 98 100 Oximetry 06/09/18 06/09/18 06/09/18 13:30 13:41 13:51 Temperature Pulse Rate 84 81 71 Respiratory 19 17 14 Rate Blood Pressure 149/101 149/101 142/91 O2 Sat by Pulse 98 100 99 Oximetry 06/09/18 06/09/18 06/09/18 14:00 14:11 14:21 Temperature Pulse Rate 77 85 89 Respiratory 20 17 23 Rate Blood Pressure 143/94 143/94 149/101 O2 Sat by Pulse 98 99 100 Oximetry 06/09/18 06/09/18 06/09/18 14:30 14:41 14:45 Temperature Pulse Rate 89 86 85 Respiratory 20 20 Rate Blood Pressure 151/106 151/106 151/106 O2 Sat by Pulse 99 95 Oximetry 06/09/18 06/09/18 14:46 14:51 Temperature Pulse Rate 77 84 Respiratory 12 Rate Blood Pressure 151/106 149/101 O2 Sat by Pulse 98 Oximetry General appearance: Present: mild distress - EENT Eyes: no scleral icterus, no conjunctival injection ENT: no dentition normal, no ulcerations Ears: bilateral: normal - Neck Neck: supple, normal ROM - Respiratory Respiratory: bilateral: diminished - Breasts Breasts: normal - Cardiovascular Rhythm: irregularly irregular Heart Sounds: Present: S1 & S2. Absent: gallop, rub Extremities: pulses intact, No edema, normal color, Full ROM - Gastrointestinal General gastrointestinal: Present: soft, non-tender, non-distended, normal bowel sounds - Integumentary Integumentary: clear, warm, dry - Musculoskeletal Musculoskeletal: generalized weakness - Neurologic Neurologic: moves all extremities - Psychiatric Psychiatric: no appropriate mood/affect, no intact judgment & insight, no memory intact, agitated - Labs CBC & Chem 7: 06/10/18 08:15 06/10/18 08:15 Labs: Abnormal lab results 06/09/18 06/09/18 Range/Units 03:46 13:26 BUN 7 L (9-20) mg/dL Creatinine 0.5 L (0.8-1.5) mg/dL POC Glucose 107 H (70-105) - Imaging and cardiology Chest x-ray: report reviewed Abdominal x-ray: report reviewed
[2018-06-10] MEDS: HumuLIN R SUB-Q SCH ×3 (00:12→11:30)
[2018-06-10] MEDS: ZOSYN/NS 3.375GM/50ML 3.375 GM/50 ML BAG IV SCH ×3 (00:12→14:19)
[2018-06-10] MEDS: NITRO-BID 2% TP SCH ×2 (06:28→10:14)
[2018-06-10 08:32] LABS: Hematocrit 39.3 % (35.5-45.6); Mean Corpuscular HGB Conc 33 % (32-34); Mean Corpuscular Volume 96 fl (84-94); Red Blood Count 4.08 M/mm3 (3.65-5.03); Red Cell Distribution Width 15.6 % (13.2-15.2)
[2018-06-10 08:50] LABS: BUN/Creatinine Ratio 16; Blood Urea Nitrogen 11 mg/dL (9-20); Calcium 9.2 mg/dL (8.4-10.2); Hemolysis Index 33
[2018-06-10 09:23] LABS: Platelet Count 149 K/mm3 (140-440)
[2018-06-10] MEDS: LASIX IV SCH (10:14)
[2018-06-10] MEDS: ZESTRIL PO SCH (10:14)
[2018-06-10] MEDS: HALFPRIN EC PO SCH (10:14)
[2018-06-10] MEDS: HEPARIN SUB-Q SCH (10:16)
[2018-06-10] MEDS: LOPRESSOR PO SCH (10:22)
--- NOTE | 2018-06-10 10:48 | Progress Note ---
Assessment and Plan Paroxysmal atrial fibrillation with rapid ventricular response Acute HFrEF (heart failure with reduced ejection fraction) with Cardiomyopathy -Echo showed EF 25-30% - Thyroid profile WNL. Respiratory distress Altered mental status with Advanced dementia HTN (hypertension), Chronic Diabetes type 2 Hypernatremia -place a small bowel feeding tube. Once position is confirmed, initiate oral AV greg blockers - wean off cardizem infusion for HR<100 -VTE prophylaxis -Aspiration precautions -Free water via feeding tube -Not a candidate for systemic anticoagulation per cardiology -Optimize heart failure measures -Nutritional support -PT/OT - Per cardiology, he is currently not a candidate for long term care pharmacist systemic AC or aggressive cardiac evaluation/management given advanced dementia, high risk for falls and overall poor prognosis. CODE STATUS: BATSHEVAR Subjective Date of service: 06/10/18 Principal diagnosis: AFib RVR Interval history: Patient is seen today for: Paroxysmal Atrial fibrillation with rapid ventricular response; Acute HFrEF (heart failure with reduced ejection fraction) (EF 25- 30%); Acute Respiratory distress; Altered mental status with Advanced dementia Seen and examined at bedside; 24hour events reviewed; nursing and respiratory care staff consulted; no adverse overnight events reported to me; resting peacefully in bed; remains on supplemental oxygen; no emesis or overt aspi ration; no seizures; AMS/Dementia is persistent Objective - Exam Narrative Exam: General appearance: Present: mild distress - EENT Eyes: no scleral icterus, no conjunctival injection ENT: no dentition normal, no ulcerations Ears: bilateral: normal - Neck Neck: supple, normal ROM - Respiratory Respiratory: bilateral: diminished - Breasts Breasts: normal - Cardiovascular Rhythm: irregularly irregular Heart Sounds: Present: S1 & S2. Absent: gallop, rub Extremities: pulses intact, No edema, normal color, Full ROM - Gastrointestinal General gastrointestinal: Present: soft, non-tender, non-distended, normal bowel sounds - Integumentary Integumentary: clear, warm, dry - Musculoskeletal Musculoskeletal: generalized weakness - Neurologic Neurologic: moves all extremities - Psychiatric Psychiatric: no appropriate mood/affect, no intact judgment & insight, no memory intact, agitated Vital Signs - 12hr 06/09/18 06/09/18 06/09/18 22:51 23:00 23:01 Temperature Pulse Rate 70 81 71 Pulse Rate [ From Monitor] Respiratory 19 18 19 Rate Blood Pressure 150/113 134/90 134/90 O2 Sat by Pulse 97 95 100 Oximetry 06/09/18 06/09/18 06/09/18 23:11 23:21 23:31 Temperature Pulse Rate 69 74 69 Pulse Rate [ From Monitor] Respiratory 17 15 16 Rate Blood Pressure 134/90 134/90 134/90 O2 Sat by Pulse 95 98 97 Oximetry 06/09/18 06/09/18 06/10/18 23:41 23:51 00:00 Temperature 98.6 F Pulse Rate 75 80 78 Pulse Rate [ 78 From Monitor] Respiratory 13 15 14 Rate Blood Pressure 134/90 134/90 137/90 O2 Sat by Pulse 98 100 100 Oximetry 06/10/18 06/10/18 06/10/18 00:11 00:21 00:30 Temperature Pulse Rate 81 75 80 Pulse Rate [ From Monitor] Respiratory 15 13 15 Rate Blood Pressure 137/90 137/90 137/90 O2 Sat by Pulse 98 98 100 Oximetry 06/10/18 06/10/18 06/10/18 00:40 00:51 01:00 Temperature Pulse Rate 66 66 68 Pulse Rate [ From Monitor] Respiratory 15 16 14 Rate Blood Pressure 137/90 137/90 121/94 O2 Sat by Pulse 100 100 100 Oximetry 06/10/18 06/10/18 06/10/18 01:31 02:01 02:31 Temperature Pulse Rate 82 75 68 Pulse Rate [ From Monitor] Respiratory 14 11 L 13 Rate Blood Pressure 137/90 119/95 121/94 O2 Sat by Pulse 100 99 100 Oximetry 06/10/18 06/10/18 06/10/18 03:01 03:31 03:51 Temperature 97.4 F L Pulse Rate 82 84 Pulse Rate [ From Monitor] Respiratory 16 12 Rate Blood Pressure 138/93 138/93 O2 Sat by Pulse 99 97 Oximetry 06/10/18 06/10/18 06/10/18 04:00 04:01 04:31 Temperature 97.4 F L Pulse Rate 72 85 69 Pulse Rate [ 72 From Monitor] Respiratory 12 19 11 L Rate Blood Pressure 138/93 138/93 O2 Sat by Pulse 100 98 Oximetry 06/10/18 06/10/18 06/10/18 05:01 05:31 06:00 Temperature Pulse Rate 69 71 74 Pulse Rate [ From Monitor] Respiratory 12 11 L 14 Rate Blood Pressure 127/82 127/82 137/92 O2 Sat by Pulse 100 100 100 Oximetry 06/10/18 06/10/18 06/10/18 06:28 06:31 07:01 Temperature Pulse Rate 76 74 80 Pulse Rate [ From Monitor] Respiratory 14 16 Rate Blood Pressure 137/92 137/92 144/104 O2 Sat by Pulse 100 99 Oximetry 06/10/18 06/10/18 06/10/18 07:30 07:52 10:14 Temperature 98.2 F Pulse Rate 86 86 Pulse Rate [ From Monitor] Respiratory 10 L Rate Blood Pressure 144/104 156/103 O2 Sat by Pulse 100 Oximetry 06/10/18 10:22 Temperature Pulse Rate 83 Pulse Rate [ From Monitor] Respiratory Rate Blood Pressure 155/101 O2 Sat by Pulse Oximetry CBC and BMP: 06/12/18 04:54 06/12/18 04:54 ABG, PT/INR, D-dimer: ABG POC ABG pH 7.404 (7.35-7.45) 06/09/18 19:49 POC ABG pCO2 47.2 (35-45) H 06/09/18 19:49 POC ABG pO2 70 (80-105) L 06/09/18 19:49 POC ABG HCO3 29.5 06/09/18 19:49 POC ABG Total CO2 31 06/09/18 19:49 POC ABG O2 Sat 94 06/09/18 19:49 Abnormal lab findings: Abnormal Labs 06/08/18 06/08/18 06/08/18 02:51 02:51 02:51 WBC MCV 97 H RDW 15.7 H Lymph % (Auto) 49.0 H [place] % (Auto) 8.2 H POC ABG pCO2 POC ABG pO2 Sodium Carbon Dioxide BUN Creatinine 0.5 L Glucose 144 H POC Glucose Lactic Acid 2.30 H* Total Creatine Kinase NT-Pro-B Natriuret Pep 06/08/18 06/08/18 06/08/18 02:56 05:41 07:29 WBC MCV RDW Lymph % (Auto) [place] % (Auto) POC ABG pCO2 POC ABG pO2 Sodium Carbon Dioxide BUN Creatinine Glucose POC Glucose 113 H Lactic Acid Total Creatine Kinase 51 L NT-Pro-B Natriuret Pep 8694 H 06/08/18 06/09/18 06/09/18 11:26 03:46 13:26 WBC MCV RDW Lymph % (Auto) [place] % (Auto) POC ABG pCO2 POC ABG pO2 Sodium Carbon Dioxide BUN 7 L Creatinine 0.5 L Glucose POC Glucose 107 H Lactic Acid Total Creatine Kinase 50 L NT-Pro-B Natriuret Pep 06/09/18 06/09/18 06/10/18 19:49 23:44 08:15 WBC 3.7 L MCV 96 H RDW 15.6 H Lymph % (Auto) [place] % (Auto) POC ABG pCO2 47.2 H POC ABG pO2 70 L Sodium Carbon Dioxide BUN Creatinine Glucose POC Glucose 109 H Lactic Acid Total Creatine Kinase NT-Pro-B Natriuret Pep 06/10/18 08:15 WBC MCV RDW Lymph % (Auto) [place] % (Auto) POC ABG pCO2 POC ABG pO2 Sodium 146 H Carbon Dioxide 31 H BUN Creatinine 0.7 L Glucose 131 H POC Glucose Lactic Acid Total Creatine Kinase NT-Pro-B Natriuret Pep
--- NOTE | 2018-06-10 11:11 | Progress Note ---
Assessment and Plan Optimize BP - increase PO lopressor. Pt is on hospice and is DNR code status. He is currently not a candidate for senior care systemic AC or aggressive cardiac evaluation/management given advanced dementia, high risk for falls and overall poor prognosis. Cont IV diuretics. Pt may tx out of CCU to telemetry from cardiology standpoint. The patient has been seen in conjunction with Dr. Aguirre who agrees with the assessment and plan of care. - Patient Problems (1) Paroxysmal atrial fibrillation with rapid ventricular response Current Visit: Yes Status: Acute (2) Acute HFrEF (heart failure with reduced ejection fraction) Current Visit: Yes Status: Acute (3) Cardiomyopathy Current Visit: Yes Status: Chronic (4) Respiratory distress Current Visit: Yes Status: Acute (5) Altered mental status Current Visit: Yes Status: Acute (6) Advanced dementia Current Visit: Yes Status: Chronic (7) HTN (hypertension) Current Visit: Yes Status: Chronic (8) Diabetes Current Visit: Yes Status: Chronic (9) DNR (do not resuscitate) Current Visit: Yes Status: Chronic Subjective Date of service: 06/10/18 Principal diagnosis: AFib RVR Interval history: pt resting in bed, lethargic, restrained. in SR on telemetry, cardizem gtt off. BPs elevated. Objective Last Vital Signs Temp 98.2 F 06/10/18 07:52 Pulse 83 06/10/18 10:22 Resp 10 L 06/10/18 07:30 BP 155/101 06/10/18 10:22 Pulse Ox 100 06/10/18 07:30 - Physical Examination General: Other (lethargic, restrained) Cardiac: Positive: Reg Rate and Rhythm, S1/S2 Lungs: Positive: Decreased Breath Sounds Neuro: Positive: Other (lethargic, restrained). Negative: Weakness Skin: Negative: Rash Extremities: Absent: edema - Labs and Meds CBC 06/10/18 Range/Units 08:15 WBC 3.7 L (4.5-11.0) K/mm3 RBC 4.08 (3.65-5.03) M/mm3 Hgb 13.0 (11.8-15.2) gm/dl Hct 39.3 (35.5-45.6) % Plt Count 149 (140-440) K/mm3 Comprehensive Metabolic Panel 06/10/18 Range/Units 08:15 Sodium 146 H (137-145) mmol/L Potassium 3.7 (3.6-5.0) mmol/L Chloride 103.1 (98-107) mmol/L Carbon Dioxide 31 H (22-30) mmol/L BUN 11 (9-20) mg/dL Creatinine 0.7 L (0.8-1.5) mg/dL Glucose 131 H (75-100) mg/dL Calcium 9.2 (8.4-10.2) mg/dL - Imaging and Cardiology EKG: report reviewed, image reviewed Echo: report reviewed (EF 25-30%, mild LVH, abnormal diastolic function, LA mildly dilated, RA mildly dilated, mild to mod MR, mod TR, RVSP 41mmHg. ) - Telemetry EKG Rhythm: Sinus Rhythm
--- NOTE | 2018-06-10 12:45 | Progress Note ---
Assessment and Plan Paroxysmal atrial fibrillation with rapid ventricular response Acute HFrEF (heart failure with reduced ejection fraction) with Cardiomyopathy Respiratory distress Altered mental status with Advanced dementia Current Visit: Yes Status: Chronic HTN (hypertension), Chronic Diabetes type 2 DNR (do not resuscitate) - transfer to [facility] - updated family at bedside in details, Pt was on hospice and is DNR code status. But family refuses hospice now - Echo showed EF 25-30%, cont PO lopressor via feeding tube, off cardizem gtt today. - Thyroid profile WNL. 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 - Cont IV diuretics. cont TF, DVT Px, speech eval Subjective Date of service: 06/10/18 Principal diagnosis: AFib RVR Interval history: Patient seen and examined more calm today, dobhoff on place Family at bedside, updated in details and answered all questions according to best of my knowledge Objective - Exam Narrative Exam: General appearance: Present: mild distress - EENT Eyes: no scleral icterus, no conjunctival injection ENT: no dentition normal, no ulcerations Ears: bilateral: normal - Neck Neck: supple, normal ROM - Respiratory Respiratory: bilateral: diminished - Breasts Breasts: normal - Cardiovascular Rhythm: irregularly irregular Heart Sounds: Present: S1 & S2. Absent: gallop, rub Extremities: pulses intact, No edema, normal color, Full ROM - Gastrointestinal General gastrointestinal: Present: soft, non-tender, non-distended, normal bowel sounds - Integumentary Integumentary: clear, warm, dry - Musculoskeletal Musculoskeletal: generalized weakness - Neurologic Neurologic: moves all extremities - Psychiatric Psychiatric: no appropriate mood/affect, no intact judgment & insight, no memory intact, agitated - Constitutional Vitals: Vital Signs - 12hr 06/10/18 06/10/18 06/10/18 00:51 01:00 01:31 Temperature Pulse Rate 66 68 82 Pulse Rate [ From Monitor] Respiratory 16 14 14 Rate Blood Pressure 137/90 121/94 137/90 O2 Sat by Pulse 100 100 100 Oximetry 06/10/18 06/10/18 06/10/18 02:01 02:31 03:01 Temperature Pulse Rate 75 68 82 Pulse Rate [ From Monitor] Respiratory 11 L 13 16 Rate Blood Pressure 119/95 121/94 138/93 O2 Sat by Pulse 99 100 99 Oximetry 06/10/18 06/10/18 06/10/18 03:31 03:51 04:00 Temperature 97.4 F L 97.4 F L Pulse Rate 84 72 Pulse Rate [ 72 From Monitor] Respiratory 12 12 Rate Blood Pressure 138/93 O2 Sat by Pulse 97 100 Oximetry 06/10/18 06/10/18 06/10/18 04:01 04:31 05:01 Temperature Pulse Rate 85 69 69 Pulse Rate [ From Monitor] Respiratory 19 11 L 12 Rate Blood Pressure 138/93 138/93 127/82 O2 Sat by Pulse 98 100 Oximetry 06/10/18 06/10/18 06/10/18 05:31 06:00 06:28 Temperature Pulse Rate 71 74 76 Pulse Rate [ From Monitor] Respiratory 11 L 14 Rate Blood Pressure 127/82 137/92 137/92 O2 Sat by Pulse 100 100 Oximetry 06/10/18 06/10/18 06/10/18 06:31 07:01 07:30 Temperature Pulse Rate 74 80 86 Pulse Rate [ From Monitor] Respiratory 14 16 10 L Rate Blood Pressure 137/92 144/104 144/104 O2 Sat by Pulse 100 99 100 Oximetry 06/10/18 06/10/18 06/10/18 07:52 08:00 08:30 Temperature 98.2 F Pulse Rate 89 82 Pulse Rate [ From Monitor] Respiratory 11 L 14 Rate Blood Pressure 144/104 165/114 O2 Sat by Pulse 98 97 Oximetry 06/10/18 06/10/18 06/10/18 09:00 09:30 10:00 Temperature Pulse Rate 74 86 85 Pulse Rate [ From Monitor] Respiratory 14 15 12 Rate Blood Pressure 165/114 152/93 156/103 O2 Sat by Pulse 97 98 100 Oximetry 06/10/18 06/10/18 06/10/18 10:14 10:22 10:30 Temperature Pulse Rate 86 83 97 H Pulse Rate [ From Monitor] Respiratory 23 Rate Blood Pressure 156/103 155/101 152/93 O2 Sat by Pulse 98 Oximetry 06/10/18 06/10/18 06/10/18 11:00 11:30 11:52 Temperature 99.0 F Pulse Rate 83 85 Pulse Rate [ From Monitor] Respiratory 13 13 Rate Blood Pressure 152/93 150/96 O2 Sat by Pulse 99 99 Oximetry 06/10/18 06/10/18 12:00 12:30 Temperature Pulse Rate 79 86 Pulse Rate [ From Monitor] Respiratory 14 10 L Rate Blood Pressure 156/103 150/96 O2 Sat by Pulse 100 99 Oximetry - Labs CBC & Chem 7: 06/10/18 08:15 06/10/18 08:15 Labs: Abnormal lab results 06/09/18 06/09/18 06/09/18 Range/Units 13:26 19:49 23:44 WBC (4.5-11.0) K/mm3 MCV (84-94) fl RDW (13.2-15.2) % POC ABG pCO2 47.2 H (35-45) POC ABG pO2 70 L (80-105) Sodium (137-145) mmol/L Carbon Dioxide (22-30) mmol/L Creatinine (0.8-1.5) mg/dL Glucose (75-100) mg/dL POC Glucose 107 H 109 H (70-105) 06/10/18 06/10/18 06/10/18 Range/Units 08:15 08:15 11:17 WBC 3.7 L (4.5-11.0) K/mm3 MCV 96 H (84-94) fl RDW 15.6 H (13.2-15.2) % POC ABG pCO2 (35-45) POC ABG pO2 (80-105) Sodium 146 H (137-145) mmol/L Carbon Dioxide 31 H (22-30) mmol/L Creatinine 0.7 L (0.8-1.5) mg/dL Glucose 131 H (75-100) mg/dL POC Glucose 146 H (70-105)
--- NOTE | 2018-06-10 16:20 | Query- Heart Failure ---
Sukumar Del Toro____Arlene Date:____06/10/2018 Mary/RIGO:__Arlene Phone#:___[phone] Exercise your independent professional judgment when responding to query. Questions asked do not imply a particular answer is desired or expected. We greatly appreciate your clarification on this issue. Clinical Documentation States: Patient is a 78-year-old Male who is presenting from [facility] for shortness of breath. On arrival patient is inspiratory respiratory distress and is agitated. Patient has audible wheezing. The IM progress note stated "Acute HFrEF (heart failure with reduced ejection fraction) with Cardiomyopathy." Clinical Findings Show: BNP:__8694 , Treatment (Medications):___IV Lasix If possible, Please Clarify if you mean: Acuity: [ ] Acute [ ] Acute on Chronic [ ] Chronic Type: [ ] Systolic Heart Failure [ ] Diastolic Heart Failure [ ] Combined Heart Failure [ ] Other: Present on Admission: [ ] Yes (Y) [ ] Clinically undeterminable (W) [ ] No (N) Please also document response in your Progress Notes and/or Discharge Summary and indicate if the condition was present on admission. RAMANA
--- NOTE | 2018-06-10 16:24 | Query- Dyspnea ---
Sukumar Del Toro__Justin Date:__06/10/2018 Mary/RIGO:___Arlene Phone#:__[phone] Exercise your independent professional judgment when responding to query. Questions asked do not imply a particular answer is desired or expected. We greatly appreciate your clarification on this issue. Clinical Documentation States: Patient is a 78-year-old Male who is presenting from [facility] for shortness of breath. On arrival patient is inspiratory respiratory distress and is agitated. Patient has audible wheezing. The IM progress note stated "Respiratory distress." Clinical Findings Show: Oxygen Flow Rate: 3L/min RR: 28 Please clarify if the patient had any of the following conditions based on the above clinical findings: [ ] Respiratory Failure [ ] Acute [ ] Acute on Chronic [ ] Chronic [ ] Respiratory failure due to trauma [ ] Acute Respiratory Distress Syndrome [ ] Other: [ ] Unable to determine [ ] Comment/Explanation: Present on Admission: [ ] Yes (Y) [ x] Clinically undeterminable (W) [ ] No (N) Please also document response in your Progress Notes and/or Discharge Summary and indicate if the condition was present on admission. RAMANA
[2018-06-11] MEDS: ZOSYN/NS 3.375GM/50ML 3.375 GM/50 ML BAG IV SCH ×3 (00:41→17:31)
[2018-06-11] MEDS: HumuLIN R SUB-Q SCH ×6 (00:46→21:27)
[2018-06-11] MEDS: NITRO-BID 2% TP SCH ×3 (10:30→17:32)
[2018-06-11] MEDS: ZESTRIL PO SCH (10:31)
[2018-06-11] MEDS: HALFPRIN EC PO SCH (10:32)
[2018-06-11] MEDS: LOPRESSOR PO SCH ×2 (10:34→21:17)
[2018-06-11] MEDS: HEPARIN SUB-Q SCH ×2 (10:37→21:18)
--- NOTE | 2018-06-11 11:24 | Progress Note ---
Assessment and Plan Currently stable cardiac status. Cont present cardiac management. Pt is on hospice and is DNR code status. 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 Nothing further to add from cardiac perspective at this time. Will follow on as needed basis. The patient has been seen in conjunction with Dr. Aguirre who agrees with the assessment and plan of care. - Patient Problems (1) Paroxysmal atrial fibrillation with rapid ventricular response Current Visit: Yes Status: Acute (2) Acute HFrEF (heart failure with reduced ejection fraction) Current Visit: Yes Status: Acute (3) Cardiomyopathy Current Visit: Yes Status: Chronic (4) Respiratory distress Current Visit: Yes Status: Acute (5) Altered mental status Current Visit: Yes Status: Acute (6) Advanced dementia Current Visit: Yes Status: Chronic (7) HTN (hypertension) Current Visit: Yes Status: Chronic (8) Diabetes Current Visit: Yes Status: Chronic (9) DNR (do not resuscitate) Current Visit: Yes Status: Chronic Subjective Date of service: 06/11/18 Principal diagnosis: AFib RVR Interval history: pt resting in bed, lethargic, restrained. in SR on telemetry. Objective Last Vital Signs Temp 97.8 F 06/11/18 08:00 Pulse 77 06/11/18 11:00 Resp 20 06/11/18 11:00 BP 139/92 06/11/18 11:00 Pulse Ox 96 06/11/18 11:00 - Physical Examination General: Other (lethargic, restrained) Cardiac: Positive: Reg Rate and Rhythm, S1/S2 Lungs: Positive: Decreased Breath Sounds Neuro: Positive: Other (lethargic, restrained). Negative: Weakness Skin: Negative: Rash Extremities: Absent: edema - Imaging and Cardiology EKG: report reviewed, image reviewed Echo: report reviewed (EF 25-30%, mild LVH, abnormal diastolic function, LA mildly dilated, RA mildly dilated, mild to mod MR, mod TR, RVSP 41mmHg. )
[2018-06-11 11:27] LABS: BUN/Creatinine Ratio 18; Blood Urea Nitrogen 11 mg/dL (9-20); Calcium 8.8 mg/dL (8.4-10.2); Hemolysis Index 10
[2018-06-11] MEDS ORDERED: POTASSIUM CHLORIDE PO ONE (13:00)
[2018-06-11] MEDS ORDERED: K-DUR PO ONE (13:00)
--- NOTE | 2018-06-11 14:57 | Progress Note ---
Assessment and Plan Paroxysmal atrial fibrillation with rapid ventricular response Acute HFrEF (heart failure with reduced ejection fraction) (EF 25-30%) Acute Respiratory distress Altered mental status with Advanced dementia HTN (hypertension), Chronic Diabetes type 2 Hypernatremia - continue supplemental oxygen to keep O2 Sat's > 90% - consider trial of diuretics - VTE prophylaxis - Aspiration precautions - Free water via feeding tube - Not a candidate for systemic anticoagulation per cardiology - mobility protocol for pressure ulcer prophylaxis - Optimize heart failure measures - Nutritional support, consult placed - SENIOR PRODUCER to evaluate swallow function - PT/OT to evaluate and treat. - continue other care per attending / other consultants CODE STATUS: DNAR Subjective Date of service: 06/11/18 Principal diagnosis: Paroxysmal A-Fib with RVR; Acute CHF (EF 25-30%); Acute Resp distress; AMS Interval history: Patient is seen today for: Paroxysmal Atrial fibrillation with rapid ventricular response; Acute HFrEF (heart failure with reduced ejection fraction) (EF 25- 30%); Acute Respiratory distress; Altered mental status with Advanced dementia Seen and examined at bedside; 24hour events reviewed; nursing and respiratory care staff consulted; no adverse overnight events reported to me; resting peacefully in bed; remains on supplemental oxygen; no emesis or overt aspiration; no seizures; AMS/Dementia is persistent Objective Vital Signs - 12hr 06/11/18 06/11/18 06/11/18 03:00 03:30 04:00 Temperature 98 F Pulse Rate 82 76 83 Pulse Rate [ From Monitor] Respiratory 19 8 L 17 Rate Blood Pressure 108/74 130/86 108/74 O2 Sat by Pulse 97 99 95 Oximetry 06/11/18 06/11/18 06/11/18 04:30 05:00 05:30 Temperature Pulse Rate 89 84 Pulse Rate [ From Monitor] Respiratory 10 L 18 Rate Blood Pressure 133/88 132/84 132/84 O2 Sat by Pulse 92 92 95 Oximetry 06/11/18 06/11/18 06/11/18 06:00 06:30 07:00 Temperature Pulse Rate 79 97 H 85 Pulse Rate [ From Monitor] Respiratory 18 9 L 17 Rate Blood Pressure 125/77 111/67 125/77 O2 Sat by Pulse 98 97 96 Oximetry 06/11/18 06/11/18 06/11/18 07:30 08:00 08:30 Temperature 97.8 F Pulse Rate 78 93 H 95 H Pulse Rate [ 91 H From Monitor] Respiratory 20 19 15 Rate Blood Pressure 141/94 127/77 132/77 O2 Sat by Pulse 97 97 96 Oximetry 06/11/18 06/11/18 06/11/18 09:00 09:30 10:00 Temperature Pulse Rate 75 89 81 Pulse Rate [ From Monitor] Respiratory 21 14 19 Rate Blood Pressure 116/65 123/73 132/76 O2 Sat by Pulse 93 97 97 Oximetry 06/11/18 06/11/18 06/11/18 10:30 10:34 11:00 Temperature Pulse Rate 81 85 77 Pulse Rate [ From Monitor] Respiratory 20 20 Rate Blood Pressure 139/85 139/92 139/92 O2 Sat by Pulse 95 96 Oximetry 06/11/18 06/11/18 06/11/18 11:30 12:00 12:30 Temperature 98.4 F Pulse Rate 75 75 70 Pulse Rate [ 71 From Monitor] Respiratory 10 L 20 13 Rate Blood Pressure 134/91 134/91 117/75 O2 Sat by Pulse 93 94 97 Oximetry 06/11/18 06/11/18 06/11/18 13:00 13:05 13:30 Temperature Pulse Rate 82 67 77 Pulse Rate [ From Monitor] Respiratory 18 18 Rate Blood Pressure 123/81 115/69 113/72 O2 Sat by Pulse 98 Oximetry 06/11/18 06/11/18 14:00 14:30 Temperature Pulse Rate 72 74 Pulse Rate [ From Monitor] Respiratory 20 21 Rate Blood Pressure 123/73 123/73 O2 Sat by Pulse 92 96 Oximetry Constitutional: no acute distress, agitated, other (elderly looking Aand chronically ill looking AAM with mildy increased resp effort at rest) Eyes: non-icteric ENT: oropharynx moist Neck: supple, no lymphadenopathy, no JVD Effort: mildly labored Ascultation: Bilateral: diminished breath sounds, rales (lung bases) Percussion: Bilateral: not dull Cardiovascular: irregular rhythm Gastrointestinal: normoactive bowel sounds, soft, non-tender, non-distended Integumentary: other (poor turgor) Extremities: no cyanosis, pulses normal, no ischemia or petechiae Neurologic: unable to assess Psychiatric: other (unable to assess) CBC and BMP: 06/12/18 04:54 06/12/18 04:54 ABG, PT/INR, D-dimer: ABG POC ABG pH 7.404 (7.35-7.45) 06/09/18 19:49 POC ABG pCO2 47.2 (35-45) H 06/09/18 19:49 POC ABG pO2 70 (80-105) L 06/09/18 19:49 POC ABG HCO3 29.5 06/09/18 19:49 POC ABG Total CO2 31 06/09/18 19:49 POC ABG O2 Sat 94 06/09/18 19:49 Abnormal lab findings: Abnormal Labs 06/08/18 06/08/18 06/08/18 02:51 02:51 02:51 WBC MCV 97 H RDW 15.7 H Lymph % (Auto) 49.0 H [place]rus % (Auto) 8.2 H POC ABG pCO2 POC ABG pO2 Sodium Potassium Carbon Dioxide BUN Creatinine 0.5 L Glucose 144 H POC Glucose Lactic Acid 2.30 H* Total Creatine Kinase NT-Pro-B Natriuret Pep 06/08/18 06/08/18 06/08/18 02:56 05:41 07:29 WBC MCV RDW Lymph % (Auto) [place]rus % (Auto) POC ABG pCO2 POC ABG pO2 Sodium Potassium Carbon Dioxide BUN Creatinine Glucose POC Glucose 113 H Lactic Acid Total Creatine Kinase 51 L NT-Pro-B Natriuret Pep 8694 H 06/08/18 06/09/18 06/09/18 11:26 03:46 13:26 WBC MCV RDW Lymph % (Auto) [place] % (Auto) POC ABG pCO2 POC ABG pO2 Sodium Potassium Carbon Dioxide BUN 7 L Creatinine 0.5 L Glucose POC Glucose 107 H Lactic Acid Total Creatine Kinase 50 L NT-Pro-B Natriuret Pep 06/09/18 06/09/18 06/10/18 19:49 23:44 08:15 WBC 3.7 L MCV 96 H RDW 15.6 H Lymph % (Auto) [place]rus % (Auto) POC ABG pCO2 47.2 H POC ABG pO2 70 L Sodium Potassium Carbon Dioxide BUN Creatinine Glucose POC Glucose 109 H Lactic Acid Total Creatine Kinase NT-Pro-B Natriuret Pep 06/10/18 06/10/18 06/11/18 08:15 11:17 00:36 WBC MCV RDW Lymph % (Auto) [place] % (Auto) POC ABG pCO2 POC ABG pO2 Sodium 146 H Potassium Carbon Dioxide 31 H BUN Creatinine 0.7 L Glucose 131 H POC Glucose 146 H 137 H Lactic Acid Total Creatine Kinase NT-Pro-B Natriuret Pep 06/11/18 06/11/18 06/11/18 07:52 10:45 11:48 WBC MCV RDW Lymph % (Auto) [place] % (Auto) POC ABG pCO2 POC ABG pO2 Sodium 146 H Potassium 2.6 L* D Carbon Dioxide BUN Creatinine 0.6 L Glucose 160 H POC Glucose 156 H 151 H Lactic Acid Total Creatine Kinase NT-Pro-B Natriuret Pep Chest x-ray: image reviewed (mild interstitial edema pattern) Allied health notes reviewed: nursing
[2018-06-11] MEDS: KCL 10MEQ/100ML 10 MEQ/100 ML BAG IV SCH ×3 (15:33→17:37)
--- NOTE | 2018-06-11 15:47 | Progress Note ---
Assessment and Plan Paroxysmal atrial fibrillation with rapid ventricular response Acute HFrEF (heart failure with reduced ejection fraction) with Cardiomyopathy Respiratory distress Altered mental status with Advanced dementia HTN (hypertension), Chronic Diabetes type 2 Hypokalemia, severe DNR (do not resuscitate) - Monitor at IMCU - updated family at bedside in details, Pt was on hospice and is DNR code status. But family refuses hospice now - Echo showed EF 25-30%, cont PO lopressor via feeding tube, s/p cardizem gtt - Thyroid profile WNL. 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 - stop IV diuretics as pt now appears to be compensated. cont TF, DVT Px, replace electrolytes and monitor - s/p speech eval recommended NPO as he does not have swallow reflex - cont to provide supportive care Subjective Date of service: 06/11/18 Principal diagnosis: Paroxysmal A-Fib with RVR; Acute CHF (EF 25-30%); Acute Resp distress; AMS Interval history: Patient seen and examined more calm today, dobhoff on place Discussed with, updated in details and answered all questions according to best of my knowledge Further recommended that hospice is more appropriate for him, she stated that she will discuss with her other family member to make any decision Objective - Exam Narrative Exam: General appearance: Present: mild distress - EENT Eyes: no scleral icterus, no conjunctival injection ENT: no dentition normal, no ulcerations Ears: bilateral: normal - Neck Neck: supple, normal ROM - Respiratory Respiratory: bilateral: diminished - Breasts Breasts: normal - Cardiovascular Rhythm: irregularly irregular Heart Sounds: Present: S1 & S2. Absent: gallop, rub Extremities: pulses intact, No edema, normal color, Full ROM - Gastrointestinal General gastrointestinal: Present: soft, non-tender, non-distended, normal bowel sounds - Integumentary Integumentary: clear, warm, dry - Musculoskeletal Musculoskeletal: generalized weakness - Neurologic Neurologic: moves all extremities - Psychiatric Psychiatric: no appropriate mood/affect, no intact judgment & insight, no memory intact, agitated - Constitutional Vitals: Vital Signs - 12hr 06/11/18 06/11/18 06/11/18 04:00 04:30 05:00 Temperature 98 F Pulse Rate 83 89 84 Pulse Rate [ From Monitor] Respiratory 17 10 L 18 Rate Blood Pressure 108/74 133/88 132/84 O2 Sat by Pulse 95 92 92 Oximetry 06/11/18 06/11/18 06/11/18 05:30 06:00 06:30 Temperature Pulse Rate 79 97 H Pulse Rate [ From Monitor] Respiratory 18 9 L Rate Blood Pressure 132/84 125/77 111/67 O2 Sat by Pulse 95 98 97 Oximetry 06/11/18 06/11/18 06/11/18 07:00 07:30 08:00 Temperature 97.8 F Pulse Rate 85 78 93 H Pulse Rate [ 91 H From Monitor] Respiratory 17 20 19 Rate Blood Pressure 125/77 141/94 127/77 O2 Sat by Pulse 96 97 97 Oximetry 06/11/18 06/11/18 06/11/18 08:30 09:00 09:30 Temperature Pulse Rate 95 H 75 89 Pulse Rate [ From Monitor] Respiratory 15 21 14 Rate Blood Pressure 132/77 116/65 123/73 O2 Sat by Pulse 96 93 97 Oximetry 06/11/18 06/11/18 06/11/18 10:00 10:30 10:34 Temperature Pulse Rate 81 81 85 Pulse Rate [ From Monitor] Respiratory 19 20 Rate Blood Pressure 132/76 139/85 139/92 O2 Sat by Pulse 97 95 Oximetry 06/11/18 06/11/18 06/11/18 11:00 11:30 12:00 Temperature 98.4 F Pulse Rate 77 75 75 Pulse Rate [ 71 From Monitor] Respiratory 20 10 L 20 Rate Blood Pressure 139/92 134/91 134/91 O2 Sat by Pulse 96 93 94 Oximetry 06/11/18 06/11/18 06/11/18 12:30 13:00 13:05 Temperature Pulse Rate 70 82 67 Pulse Rate [ From Monitor] Respiratory 13 18 Rate Blood Pressure 117/75 123/81 115/69 O2 Sat by Pulse 97 98 Oximetry 06/11/18 06/11/18 06/11/18 13:30 14:00 14:30 Temperature Pulse Rate 77 72 74 Pulse Rate [ From Monitor] Respiratory 18 20 21 Rate Blood Pressure 113/72 123/73 123/73 O2 Sat by Pulse 92 96 Oximetry 06/11/18 15:00 Temperature Pulse Rate 67 Pulse Rate [ From Monitor] Respiratory 18 Rate Blood Pressure 111/75 O2 Sat by Pulse 99 Oximetry - Labs CBC & Chem 7: 06/12/18 04:54 06/12/18 04:54 Labs: Abnormal lab results 06/11/18 06/11/18 06/11/18 Range/Units 00:36 07:52 10:45 Sodium 146 H (137-145) mmol/L Potassium 2.6 L* D (3.6-5.0) mmol/L Creatinine 0.6 L (0.8-1.5) mg/dL Glucose 160 H (75-100) mg/dL POC Glucose 137 H 156 H (70-105) 06/11/18 Range/Units 11:48 Sodium (137-145) mmol/L Potassium (3.6-5.0) mmol/L Creatinine (0.8-1.5) mg/dL Glucose (75-100) mg/dL POC Glucose 151 H (70-105)
[2018-06-11] MEDS: HALDOL IM PRN (21:16)
[2018-06-11] MEDS: RisperDAL PO SCH (21:17)
[2018-06-11] MEDS: REMERON PO SCH (21:17)
[2018-06-12] MEDS: NITRO-BID 2% TP SCH ×5 (05:01→18:37)
[2018-06-12] MEDS: ZOSYN/NS 3.375GM/50ML 3.375 GM/50 ML BAG IV SCH ×6 (05:04→18:38)
[2018-06-12 05:59] LABS: Hematocrit 40.4 % (35.5-45.6); Hemoglobin 13.3 gm/dl (11.8-15.2); Mean Corpuscular HGB Conc 33 % (32-34); Mean Corpuscular Volume 96 fl (84-94); Platelet Count 152 K/mm3 (140-440); Red Cell Distribution Width 15.8 % (13.2-15.2)
[2018-06-12 06:08] LABS: BUN/Creatinine Ratio 18; Blood Urea Nitrogen 11 mg/dL (9-20); Calcium 9.1 mg/dL (8.4-10.2); Hemolysis Index 12
[2018-06-12 06:53] LABS: Anisocytosis Few; Band Neutrophils # (Manual) 0.2 K/mm3; Basophils % (Manual) 0 % (0.0-1.8); Macrocytosis Few; Total Cells Counted 100
--- NOTE | 2018-06-12 09:53 | Progress Note ---
Assessment and Plan Currently stable cardiac status. Cont present cardiac management. Pt is on hospice and is DNR code status. He is currently not a candidate for [facility] systemic AC or aggressive cardiac evaluation/management given advanced dementia, high risk for falls and overall poor prognosis. Nothing further to add from cardiac perspective at this time. Will follow on as needed basis. - Patient Problems (1) Acute on chronic systolic and diastolic heart failure, NYHA class 1 Current Visit: Yes Status: Acute (2) Acute HFrEF (heart failure with reduced ejection fraction) Current Visit: Yes Status: Acute (3) Altered mental status Current Visit: Yes Status: Chronic (4) Atrial fibrillation with rapid ventricular response Current Visit: Yes Status: Resolved (5) Paroxysmal atrial fibrillation with rapid ventricular response Current Visit: Yes Status: Acute (6) Respiratory distress Current Visit: Yes Status: Acute (7) Cardiomyopathy Current Visit: Yes Status: Acute Qualifiers: Cardiomyopathy type: dilated Qualified Code(s): I42.0 - Dilated cardiomyopathy (8) DNR (do not resuscitate) Current Visit: Yes Status: Chronic Subjective Date of service: 06/12/18 Principal diagnosis: Paroxysmal A-Fib with RVR; Acute CHF (EF 25-30%); Acute Resp distress; AMS Interval history: pt ams, pulled ngt tube Objective Vital Signs Temp Pulse Pulse Resp BP Pulse Ox 06/12/18 05:01 75 153/108 06/12/18 04:44 97.8 F 06/12/18 04:00 86 73 19 153/108 99 06/12/18 03:30 81 16 132/93 97 06/12/18 03:00 83 11 L 132/93 94 06/12/18 02:30 73 20 132/93 97 06/12/18 02:00 79 17 132/93 95 06/12/18 01:30 78 20 129/90 85 06/12/18 01:05 98.3 F 06/12/18 01:00 66 21 129/90 99 06/12/18 00:30 56 L 15 129/90 100 06/12/18 00:00 71 72 13 105/72 97 06/11/18 23:30 55 L 14 105/72 98 06/11/18 23:00 67 17 105/72 99 06/11/18 22:30 73 15 105/72 98 06/11/18 22:00 64 15 108/74 99 06/11/18 21:30 60 17 108/74 99 06/11/18 21:17 74 108/74 06/11/18 21:00 77 15 108/74 97 06/11/18 20:30 79 20 108/74 98 06/11/18 20:00 98.4 F 70 81 18 110/72 95 06/11/18 19:32 86 9 L 110/72 98 06/11/18 19:30 78 11 L 110/72 99 06/11/18 19:00 69 19 110/72 97 06/11/18 18:30 90 17 117/79 98 06/11/18 18:00 82 14 117/79 100 06/11/18 17:30 76 14 116/65 98 06/11/18 17:00 71 18 119/72 96 06/11/18 16:30 74 17 131/90 97 06/11/18 16:00 98.3 F 78 69 13 139/95 87 06/11/18 15:30 83 16 111/75 97 06/11/18 15:00 67 18 111/75 99 06/11/18 14:30 74 21 123/73 96 06/11/18 14:00 72 20 123/73 92 06/11/18 13:30 77 18 113/72 06/11/18 13:05 67 115/69 06/11/18 13:00 82 18 123/81 98 06/11/18 12:30 70 13 117/75 97 06/11/18 12:00 98.4 F 75 71 20 134/91 94 06/11/18 11:30 75 10 L 134/91 93 06/11/18 11:00 77 20 139/92 96 06/11/18 10:34 85 139/92 06/11/18 10:30 81 20 139/85 95 06/11/18 10:00 81 19 132/76 97 - Physical Examination General: No Apparent Distress, Other (lethargic, restrained) HEENT: Positive: PERRL Neck: Positive: neck supple Cardiac: Positive: Irregularly Regular Lungs: Positive: clear to auscultation Neuro: Positive: Other (lethargic, restrained). Negative: Weakness Skin: Negative: Rash Extremities: Absent: edema - Labs and Meds CBC 06/12/18 Range/Units 04:54 WBC 3.2 L (4.5-11.0) K/mm3 RBC 4.20 (3.65-5.03) M/mm3 Hgb 13.3 (11.8-15.2) gm/dl Hct 40.4 (35.5-45.6) % Plt Count 152 (140-440) K/mm3 Comprehensive Metabolic Panel 06/11/18 06/12/18 Range/Units 10:45 04:54 Sodium 146 H 149 H (137-145) mmol/L Potassium 2.6 L* D 3.2 L D (3.6-5.0) mmol/L Chloride 105.3 105.8 (98-107) mmol/L Carbon Dioxide 28 29 (22-30) mmol/L BUN 11 11 (9-20) mg/dL Creatinine 0.6 L 0.6 L (0.8-1.5) mg/dL Glucose 160 H 190 H (75-100) mg/dL Calcium 8.8 9.1 (8.4-10.2) mg/dL - Imaging and Cardiology EKG: report reviewed, image reviewed Echo: report reviewed (EF 25-30%, mild LVH, abnormal diastolic function, LA mildly dilated, RA mildly dilated, mild to mod MR, mod TR, RVSP 41mmHg. ) - Telemetry EKG Rhythm: Atrial Fibrillation
--- NOTE | 2018-06-12 11:04 | XRay Report ---
Portable KUB: Tube placement. A nasogastric tube is kinked in the mid chest and appears to be oriented into the lower lobe bronchus of the right lung. There is gaseous distention of the bowel. Impression: Pulmonary orientation a nasogastric tube. Reinsertion required.
[2018-06-12] MEDS: HumuLIN R SUB-Q SCH ×3 (12:20→18:37)
[2018-06-12] MEDS: HEPARIN SUB-Q SCH ×2 (12:21→22:54)
--- NOTE | 2018-06-12 13:29 | XRay Report ---
Portable KUB: Tube placement. A nasogastric tube tip is located in the mid stomach. There is gaseous distention of bowel loops. No other findings noted.
--- NOTE | 2018-06-12 14:49 | Progress Note ---
Assessment and Plan Paroxysmal atrial fibrillation with rapid ventricular response Acute HFrEF (heart failure with reduced ejection fraction) (EF 25-30%) Acute Respiratory distress Altered mental status with Advanced dementia HTN (hypertension), Chronic Diabetes type 2 Hypernatremia - continue supplemental oxygen to keep O2 Sat's > 90% - consider trial of diuretics - VTE prophylaxis - Aspiration precautions - Free water via feeding tube - Not a candidate for systemic anticoagulation per cardiology - mobility protocol for pressure ulcer prophylaxis - Optimize heart failure measures - Nutritional support, consult placed - DERRICK BUILDER to evaluate swallow function - PT/OT to evaluate and treat. - continue other care per attending / other consultants CODE STATUS: DNAR Subjective Date of service: 06/12/18 Principal diagnosis: Paroxysmal A-Fib with RVR; Acute CHF (EF 25-30%); Acute Resp distress; AMS Interval history: Patient is seen today for: Paroxysmal Atrial fibrillation with rapid ventricular response; Acute HFrEF (heart failure with reduced ejection fraction) (EF 25- 30%); Acute Respiratory distress; Altered mental status with Advanced dementia Seen and examined at bedside; 24hour events reviewed; nursing and respiratory care staff consulted; no adverse overnight events reported to me; resting peacefully in bed; Objective Vital Signs - 12hr 06/12/18 06/12/18 06/12/18 03:00 03:30 04:00 Temperature Pulse Rate 83 81 86 Pulse Rate [ 73 From Monitor] Respiratory 11 L 16 19 Rate Blood Pressure 132/93 132/93 153/108 O2 Sat by Pulse 94 97 99 Oximetry 06/12/18 06/12/18 06/12/18 04:30 04:44 05:00 Temperature 97.8 F Pulse Rate 77 75 Pulse Rate [ From Monitor] Respiratory 15 17 Rate Blood Pressure 153/108 153/108 O2 Sat by Pulse 100 94 Oximetry 06/12/18 06/12/18 06/12/18 05:01 05:30 06:00 Temperature Pulse Rate 75 66 80 Pulse Rate [ From Monitor] Respiratory 16 16 Rate Blood Pressure 153/108 153/108 144/100 O2 Sat by Pulse 94 96 Oximetry 06/12/18 06/12/18 06/12/18 06:30 07:00 07:30 Temperature Pulse Rate 69 82 85 Pulse Rate [ From Monitor] Respiratory 19 14 20 Rate Blood Pressure 136/93 136/93 136/93 O2 Sat by Pulse 98 97 91 Oximetry 06/12/18 06/12/18 06/12/18 08:00 08:30 09:00 Temperature 98.8 F Pulse Rate 77 67 85 Pulse Rate [ From Monitor] Respiratory 13 20 15 Rate Blood Pressure 136/93 132/107 132/107 O2 Sat by Pulse 99 95 99 Oximetry 06/12/18 06/12/18 06/12/18 09:30 10:00 10:30 Temperature Pulse Rate 69 75 74 Pulse Rate [ From Monitor] Respiratory 21 12 20 Rate Blood Pressure 132/107 152/101 134/98 O2 Sat by Pulse 98 96 98 Oximetry 06/12/18 06/12/18 06/12/18 11:00 11:30 12:00 Temperature 98.4 F Pulse Rate 72 64 73 Pulse Rate [ From Monitor] Respiratory 11 L 17 17 Rate Blood Pressure 134/98 134/98 134/98 O2 Sat by Pulse 98 97 99 Oximetry 06/12/18 06/12/18 06/12/18 12:30 13:00 13:30 Temperature Pulse Rate 82 79 77 Pulse Rate [ From Monitor] Respiratory 11 L 20 13 Rate Blood Pressure 140/95 140/95 140/95 O2 Sat by Pulse 98 95 100 Oximetry 06/12/18 14:00 Temperature Pulse Rate 80 Pulse Rate [ From Monitor] Respiratory 17 Rate Blood Pressure 140/95 O2 Sat by Pulse 94 Oximetry Constitutional: no acute distress, agitated, other (elderly looking Aand chronically ill looking AAM with mildy increased resp effort at rest) Eyes: non-icteric ENT: oropharynx moist Neck: supple, no lymphadenopathy, no JVD Effort: mildly labored Ascultation: Bilateral: diminished breath sounds, rales (lung bases) Percussion: Bilateral: not dull Cardiovascular: irregular rhythm Gastrointestinal: normoactive bowel sounds, soft, non-tender, non-distended Integumentary: other (poor turgor) Extremities: no cyanosis, pulses normal, no ischemia or petechiae Neurologic: unable to assess Psychiatric: other (unable to assess) CBC and BMP: 06/12/18 04:54 06/12/18 04:54 ABG, PT/INR, D-dimer: ABG POC ABG pH 7.404 (7.35-7.45) 06/09/18 19:49 POC ABG pCO2 47.2 (35-45) H 06/09/18 19:49 POC ABG pO2 70 (80-105) L 06/09/18 19:49 POC ABG HCO3 29.5 06/09/18 19:49 POC ABG Total CO2 31 06/09/18 19:49 POC ABG O2 Sat 94 06/09/18 19:49 Abnormal lab findings: Abnormal Labs 06/08/18 06/08/18 06/08/18 02:51 02:51 02:51 WBC MCV 97 H RDW 15.7 H Lymph % (Auto) 49.0 H Kings % (Auto) 8.2 H Seg Neuts % (Manual) Lymphocytes % (Manual) Monocytes % (Manual) Eosinophils % (Manual) Seg Neutrophils # Man POC ABG pCO2 POC ABG pO2 Sodium Potassium Carbon Dioxide BUN Creatinine 0.5 L Glucose 144 H POC Glucose Lactic Acid 2.30 H* Total Creatine Kinase NT-Pro-B Natriuret Pep 06/08/18 06/08/18 06/08/18 02:56 05:41 07:29 WBC MCV RDW Lymph % (Auto) Kings % (Auto) Seg Neuts % (Manual) Lymphocytes % (Manual) Monocytes % (Manual) Eosinophils % (Manual) Seg Neutrophils # Man POC ABG pCO2 POC ABG pO2 Sodium Potassium Carbon Dioxide BUN Creatinine Glucose POC Glucose 113 H Lactic Acid Total Creatine Kinase 51 L NT-Pro-B Natriuret Pep 8694 H 06/08/18 06/09/18 06/09/18 11:26 03:46 13:26 WBC MCV RDW Lymph % (Auto) Kings % (Auto) Seg Neuts % (Manual) Lymphocytes % (Manual) Monocytes % (Manual) Eosinophils % (Manual) Seg Neutrophils # Man POC ABG pCO2 POC ABG pO2 Sodium Potassium Carbon Dioxide BUN 7 L Creatinine 0.5 L Glucose POC Glucose 107 H Lactic Acid Total Creatine Kinase 50 L NT-Pro-B Natriuret Pep 06/09/18 06/09/18 06/10/18 19:49 23:44 08:15 WBC 3.7 L MCV 96 H RDW 15.6 H Lymph % (Auto) Kings % (Auto) Seg Neuts % (Manual) Lymphocytes % (Manual) Monocytes % (Manual) Eosinophils % (Manual) Seg Neutrophils # Man POC ABG pCO2 47.2 H POC ABG pO2 70 L Sodium Potassium Carbon Dioxide BUN Creatinine Glucose POC Glucose 109 H Lactic Acid Total Creatine Kinase NT-Pro-B Natriuret Pep 06/10/18 06/10/18 06/11/18 08:15 11:17 00:36 WBC MCV RDW Lymph % (Auto) Kings % (Auto) Seg Neuts % (Manual) Lymphocytes % (Manual) Monocytes % (Manual) Eosinophils % (Manual) Seg Neutrophils # Man POC ABG pCO2 POC ABG pO2 Sodium 146 H Potassium Carbon Dioxide 31 H BUN Creatinine 0.7 L Glucose 131 H POC Glucose 146 H 137 H Lactic Acid Total Creatine Kinase NT-Pro-B Natriuret Pep 06/11/18 06/11/18 06/11/18 07:52 10:45 11:48 WBC MCV RDW Lymph % (Auto) Kings % (Auto) Seg Neuts % (Manual) Lymphocytes % (Manual) Monocytes % (Manual) Eosinophils % (Manual) Seg Neutrophils # Man POC ABG pCO2 POC ABG pO2 Sodium 146 H Potassium 2.6 L* D Carbon Dioxide BUN Creatinine 0.6 L Glucose 160 H POC Glucose 156 H 151 H Lactic Acid Total Creatine Kinase NT-Pro-B Natriuret Pep 06/11/18 06/11/18 06/12/18 17:16 21:28 04:54 WBC 3.2 L MCV 96 H RDW 15.8 H Lymph % (Auto) Kings % (Auto) Seg Neuts % (Manual) 38.0 L Lymphocytes % (Manual) 41.0 H Monocytes % (Manual) 9.0 H Eosinophils % (Manual) 6.0 H Seg Neutrophils # Man 1.2 L POC ABG pCO2 POC ABG pO2 Sodium Potassium Carbon Dioxide BUN Creatinine Glucose POC Glucose 151 H 180 H Lactic Acid Total Creatine Kinase NT-Pro-B Natriuret Pep 06/12/18 06/12/18 06/12/18 04:54 09:23 12:22 WBC MCV RDW Lymph % (Auto) Kings % (Auto) Seg Neuts % (Manual) Lymphocytes % (Manual) Monocytes % (Manual) Eosinophils % (Manual) Seg Neutrophils # Man POC ABG pCO2 POC ABG pO2 Sodium 149 H Potassium 3.2 L D Carbon Dioxide BUN Creatinine 0.6 L Glucose 190 H POC Glucose 181 H 135 H Lactic Acid Total Creatine Kinase NT-Pro-B Natriuret Pep Allied health notes reviewed: nursing
[2018-06-12] MEDS: LOPRESSOR PO SCH (15:45)
[2018-06-12] MEDS: HALFPRIN EC PO SCH (15:48)
[2018-06-12] MEDS: ZESTRIL PO SCH (15:48)
--- NOTE | 2018-06-12 17:14 | Progress Note ---
Assessment and Plan Paroxysmal atrial fibrillation with rapid ventricular response Acute HFrEF (heart failure with reduced ejection fraction) with Cardiomyopathy Respiratory distress Altered mental status with Advanced dementia HTN (hypertension), Chronic Diabetes type 2 Hypokalemia, severe DNR (do not resuscitate) - Monitor at [facility] - updated family at bedside in details, Pt was on hospice and is DNR code status. But family refused hospice and brought patient to the hospital - Echo showed EF 25-30%, cont PO lopressor via feeding tube, s/p cardizem gtt - Thyroid profile WNL. Per cardiology, he is currently not a candidate for shelter systemic AC or aggressive cardiac evaluation/management given advanced dementia, high risk for falls and overall poor prognosis. - stop IV diuretics as pt now appears to be compensated. cont TF, DVT Px, repla ce electrolytes and monitor - s/p speech eval recommended NPO as he does not have swallow reflex - cont to provide supportive care - discussed in details with and she now agrees for taking patient back to hospice as his overall prognosis remained poor, CM notified Subjective Date of service: 06/12/18 Principal diagnosis: Paroxysmal A-Fib with RVR; Acute CHF (EF 25-30%); Acute Resp distress; AMS Interval history: Patient seen and examined more calm today, dobhoff on place Discussed with, updated in details and answered all questions according to best of my knowledge Further recommended that hospice is more appropriate for him, she agrees, CM notified Objective - Exam Narrative Exam: General appearance: Present: mild distress - EENT Eyes: no scleral icterus, no conjunctival injection ENT: no dentition normal, no ulcerations Ears: bilateral: normal - Neck Neck: supple, normal ROM - Respiratory Respiratory: bilateral: diminished - Breasts Breasts: normal - Cardiovascular Rhythm: irregularly irregular Heart Sounds: Present: S1 & S2. Absent: gallop, rub Extremities: pulses intact, No edema, normal color, Full ROM - Gastrointestinal General gastrointestinal: Present: soft, non-tender, non-distended, normal bowel sounds - Integumentary Integumentary: clear, warm, dry - Musculoskeletal Musculoskeletal: generalized weakness - Neurologic Neurologic: moves all extremities - Psychiatric Psychiatric: no appropriate mood/affect, no intact judgment & insight, no memory intact, agitated - Constitutional Vitals: Vital Signs - 12hr 06/12/18 06/12/18 06/12/18 05:30 06:00 06:30 Temperature Pulse Rate 66 80 69 Pulse Rate [ From Monitor] Respiratory 16 16 19 Rate Blood Pressure 153/108 144/100 136/93 O2 Sat by Pulse 94 96 98 Oximetry 06/12/18 06/12/18 06/12/18 07:00 07:30 08:00 Temperature 98.8 F Pulse Rate 82 85 77 Pulse Rate [ 77 From Monitor] Respiratory 14 20 16 Rate Blood Pressure 136/93 136/93 136/93 O2 Sat by Pulse 97 91 98 Oximetry 06/12/18 06/12/18 06/12/18 08:30 09:00 09:30 Temperature Pulse Rate 67 85 69 Pulse Rate [ From Monitor] Respiratory 20 15 21 Rate Blood Pressure 132/107 132/107 132/107 O2 Sat by Pulse 95 99 98 Oximetry 06/12/18 06/12/18 06/12/18 10:00 10:30 11:00 Temperature Pulse Rate 75 78 72 Pulse Rate [ From Monitor] Respiratory 12 20 11 L Rate Blood Pressure 152/101 152/101 134/98 O2 Sat by Pulse 96 98 98 Oximetry 06/12/18 06/12/18 06/12/18 11:30 12:00 12:30 Temperature 98.4 F Pulse Rate 64 73 82 Pulse Rate [ 72 From Monitor] Respiratory 17 18 11 L Rate Blood Pressure 134/98 134/98 140/95 O2 Sat by Pulse 97 96 98 Oximetry 06/12/18 06/12/18 06/12/18 13:00 13:30 14:00 Temperature Pulse Rate 79 77 80 Pulse Rate [ From Monitor] Respiratory 20 13 17 Rate Blood Pressure 140/95 140/95 140/95 O2 Sat by Pulse 95 100 94 Oximetry - Labs CBC & Chem 7: 06/12/18 04:54 06/12/18 04:54 Labs: Abnormal lab results 06/11/18 06/11/18 06/12/18 Range/Units 17:16 21:28 04:54 WBC 3.2 L (4.5-11.0) K/mm3 MCV 96 H (84-94) fl RDW 15.8 H (13.2-15.2) % Seg Neuts % (Manual) 38.0 L (40.0-70.0) % Lymphocytes % (Manual) 41.0 H (13.4-35.0) % Monocytes % (Manual) 9.0 H (0.0-7.3) % Eosinophils % (Manual) 6.0 H (0.0-4.3) % Seg Neutrophils # Man 1.2 L (1.8-7.7) K/mm3 Sodium (137-145) mmol/L Potassium (3.6-5.0) mmol/L Creatinine (0.8-1.5) mg/dL Glucose (75-100) mg/dL POC Glucose 151 H 180 H (70-105) 06/12/18 06/12/18 06/12/18 Range/Units 04:54 09:23 12:22 WBC (4.5-11.0) K/mm3 MCV (84-94) fl RDW (13.2-15.2) % Seg Neuts % (Manual) (40.0-70.0) % Lymphocytes % (Manual) (13.4-35.0) % Monocytes % (Manual) (0.0-7.3) % Eosinophils % (Manual) (0.0-4.3) % Seg Neutrophils # Man (1.8-7.7) K/mm3 Sodium 149 H (137-145) mmol/L Potassium 3.2 L D (3.6-5.0) mmol/L Creatinine 0.6 L (0.8-1.5) mg/dL Glucose 190 H (75-100) mg/dL POC Glucose 181 H 135 H (70-105)
[2018-06-13] MEDS: ZOSYN/NS 3.375GM/50ML 3.375 GM/50 ML BAG IV SCH ×4 (00:48→18:18)
[2018-06-13] MEDS: LOPRESSOR PO SCH ×4 (00:49→22:51)
[2018-06-13] MEDS: HumuLIN R SUB-Q SCH ×6 (00:49→22:50)
[2018-06-13] MEDS: RisperDAL PO SCH ×2 (00:50→22:51)
[2018-06-13] MEDS: REMERON PO SCH ×2 (00:50→22:51)
[2018-06-13] MEDS: HEPARIN SUB-Q SCH ×3 (00:50→22:49)
--- NOTE | 2018-06-13 01:54 | XRay Report ---
FINAL REPORT PROCEDURE: XR ABDOMEN 1V AP TECHNIQUE: AP supine portable radiograph of the abdomen was obtained at 06/13/2018 01:27 (EST) . HISTORY: NG TUBE PLACEMENT COMPARISON: No prior studies are available for comparison. FINDINGS: Bowel gas pattern: There is no bowel obstruction, fecal impaction or bowel wall thickening. There is a large amount of stool throughout the colon.. Masses or calcifications: None. Bony structures: Normal. Other: The NG tube is in the stomach.. IMPRESSION: The NG tube is in the stomach.
[2018-06-13] MEDS: NITRO-BID 2% TP SCH ×5 (06:32→18:09)
[2018-06-13] MEDS: ZESTRIL PO SCH (10:25)
[2018-06-13] MEDS: HALFPRIN EC PO SCH (10:46)
--- NOTE | 2018-06-13 16:01 | Discharge Summary ---
Providers - Providers Date of Admission: 06/08/18 04:54 Date of discharge: 06/15/18 Attending physician: GISELA MACK 06/08/18 13:16 Consult to Physician [CONS] Routine Comment: Consulting Provider: JAMES MELÉNDEZ Physician Instructions: Reason For Exam: atrial fib 06/08/18 19:27 Consult to Physician [CONS] Routine Comment: Consulting Provider: TIMOTHY BUTLER Physician Instructions: Reason For Exam: critical care 06/09/18 09:37 Consult to Dietitian/Nutrition [CONS] Routine Physician Instructions: Reason For Exam: Reason for Consult: Write/Manage Tube Feeding 06/09/18 11:40 Consult to Dietitian/Nutrition [CONS] Routine Physician Instructions: Reason For Exam: Reason for Consult: Write/Manage Tube Feeding 06/10/18 11:21 Occupational Therapy Evaluate and Treat [CONS] Routine Comment: Reason For Exam: decreased ADLS Physical Therapy Evaluation and Treat [CONS] Routine Comment: Reason For Exam: deconditioning 06/10/18 12:30 Speech Therapy Evaluation and Treat [CONS] Routine Reason For Exam: aspiration 06/12/18 13:36 Consult to Case Management [CONS] Routine Services Needed at Discharge: Other Notified:: COMPRESSOR OPERATOR PORTABLE Additional Physician Instructions: hospice Primary care physician: RESEARCH AND DEVELOPMENT TESTER Hospitalization Condition: Serious Pertinent studies: CXR Abdomen XRY 2d echo Hospital course: The patient is a 78-year-old male with a past medical history of atrial fibrillation, HTN, DM, advanced dementia presented from detention for rufino rtness of breath. Patient was noted to have a minor ground-level fall with no obvious signs of injury. Several hours later he was noted to have been combative with staff and was given Haldol. On arrival pt was noted to be in respiratory distress and was combative. Per pt's , pt has been refusing to eat lately. Pt was also noted to be in paroxysmal atrial fibrillation with RVR and thus cardiology was consulted. CXR was c/w HF, pro-BNP was >8K. Patient was placed on cardizem drip and Monitored at [facility]. Patient was on hospice and is DNR code status. But family refused hospice and brought patient to the hospital. His Echo showed EF 25-30%, placed on PO lopressor via feeding tube, stopped cardizem gtt . Thyroid profile WNL. Per cardiology, he is currently not a candidate for senior care systemic AC or aggressive cardiac evaluation/management given advanced dementia, high risk for falls and overall poor prognosis. Placed on TF, DVT Px, replaced electrolytes and monitored BMP. Had speech eval and recommended NPO as he does not have swallow reflex. Discussed in details with and she then agreed for taking patient back to hospice as his overall prognosis remained poor, CM notified and hospice arranged. Patient was then discharged with hospice. Discharge diagnosis: Paroxysmal atrial fibrillation with rapid ventricular response Acute HFrEF (heart failure with reduced ejection fraction) with Cardiomyopathy Respiratory distress Altered mental status with Advanced dementia HTN (hypertension), Chronic Diabetes type 2 Hypokalemia, severe, repleted DNR (do not resuscitate) Disposition: DC-50 TO HOSPICE (HOME) Core Measure Documentation - Palliative Care Palliative Care/ Comfort Measures: Not Applicable - Core Measures Any of the following diagnoses?: none Exam - Physical Exam Narrative exam: General appearance: Present: mild distress - EENT Eyes: no scleral icterus, no conjunctival injection ENT: no dentition normal, no ulcerations Ears: bilateral: normal - Neck Neck: supple, normal ROM - Respiratory Respiratory: bilateral: diminished - Breasts Breasts: normal - Cardiovascular Rhythm: irregularly irregular Heart Sounds: Present: S1 & S2. Absent: gallop, rub Extremities: pulses intact, No edema, normal color, Full ROM - Gastrointestinal General gastrointestinal: Present: soft, non-tender, non-distended, normal bowel sounds - Integumentary Integumentary: clear, warm, dry - Musculoskeletal Musculoskeletal: generalized weakness - Neurologic Neurologic: moves all extremities - Psychiatric Psychiatric: no appropriate mood/affect, no intact judgment & insight, no memory intact, agitated - Constitutional Vitals: Temp Pulse Resp BP Pulse Ox 98.0 F 68 20 128/102 100 06/13/18 08:05 06/13/18 10:00 06/13/18 08:05 06/13/18 08:05 06/13/18 08:05 Plan Activity: other (bedrest) Diet: per dietitian instruction Follow up with: PRIMARY CAREMD [Primary Care Provider] - 3-5 Days
--- NOTE | 2018-06-13 23:09 | Progress Note ---
Assessment and Plan Patient awake but not following commands. Patient is on room air.O2 saturation 94%. No acute respiratory distress. Weak and dementia. - Patient Problems (1) Pulmonary edema Current Visit: Yes Status: Acute Qualifiers: Chronicity: acute Qualified Code(s): J81.0 - Acute pulmonary edema Plan to address problem: Improved. No acute respiratory distress at rest. O2 saturation 94% on room air. (2) Respiratory distress Current Visit: Yes Status: Acute Plan to address problem: O2 2 litres via nasal canula. Albuterol aerosol treatments q 6 hours. Continue S/C heparin. Recommend protonix. (3) Acute HFrEF (heart failure with reduced ejection fraction) Current Visit: Yes Status: Acute Plan to address problem: Management as per cardiogy. (4) Cardiomyopathy Current Visit: Yes Status: Acute Qualifiers: Cardiomyopathy type: dilated Qualified Code(s): I42.0 - Dilated cardiomyopathy Plan to address problem: Managent as per cardiogy, (5) Paroxysmal atrial fibrillation with rapid ventricular response Current Visit: Yes Status: Acute Plan to address problem: Mangement as per cardiology. (6) Altered mental status Current Visit: Yes Status: Chronic (7) Diabetes Current Visit: Yes Status: Chronic Plan to address problem: Management as per primary care. (8) HTN (hypertension) Current Visit: Yes Status: Chronic Plan to address problem: Management as per primary care. Subjective Date of service: 06/17/18 Principal diagnosis: Paroxysmal A-Fib with RVR; Acute CHF (EF 25-30%); Acute Resp distress; AMS Interval history: Patient awake but not following commands. Patient is on room air.O2 saturation 94%. No acute respiratory distress. Weak and dementia. Objective Vital Signs - 12hr 06/13/18 06/13/18 06/13/18 16:34 19:22 22:00 Temperature 98.0 F 98.0 F Pulse Rate 58 L Respiratory 18 18 Rate Blood Pressure 141/82 Blood Pressure 123/77 [Right] O2 Sat by Pulse 94 94 Oximetry 06/13/18 22:51 Temperature Pulse Rate 58 L Respiratory Rate Blood Pressure 141/82 Blood Pressure [Right] O2 Sat by Pulse Oximetry Constitutional: no acute distress, alert, other (elderly looking Aand chronically ill looking AAM with mildy increased resp effort at rest) Eyes: non-icteric ENT: oropharynx moist Neck: supple, no lymphadenopathy, no JVD Effort: mildly labored Ascultation: Bilateral: diminished breath sounds, rales (lung bases) Percussion: Bilateral: not dull Cardiovascular: irregular rhythm Gastrointestinal: normoactive bowel sounds, soft, non-tender, non-distended Integumentary: other (poor turgor) Extremities: no cyanosis, pulses normal, no ischemia or petechiae Neurologic: unable to assess Psychiatric: other (unable to assess) CBC and BMP: 06/12/18 04:54 06/12/18 04:54 ABG, PT/INR, D-dimer: ABG POC ABG pH 7.404 (7.35-7.45) 06/09/18 19:49 POC ABG pCO2 47.2 (35-45) H 06/09/18 19:49 POC ABG pO2 70 (80-105) L 06/09/18 19:49 POC ABG HCO3 29.5 06/09/18 19:49 POC ABG Total CO2 31 06/09/18 19:49 POC ABG O2 Sat 94 06/09/18 19:49 Abnormal lab findings: Abnormal Labs 06/08/18 06/08/18 06/08/18 02:51 02:51 02:51 WBC MCV 97 H RDW 15.7 H Lymph % (Auto) 49.[address] [facility] % (Auto) 8.2 H Seg Neuts % (Manual) Lymphocytes % (Manual) Monocytes % (Manual) Eosinophils % (Manual) Seg Neutrophils # Man POC ABG pCO2 POC ABG pO2 Sodium Potassium Carbon Dioxide BUN Creatinine 0.5 L Glucose 144 H POC Glucose Lactic Acid 2.30 H* Total Creatine Kinase NT-Pro-B Natriuret Pep 06/08/18 06/08/18 06/08/18 02:56 05:41 07:29 WBC MCV RDW Lymph % (Auto) [facility] % (Auto) Seg Neuts % (Manual) Lymphocytes % (Manual) Monocytes % (Manual) Eosinophils % (Manual) Seg Neutrophils # Man POC ABG pCO2 POC ABG pO2 Sodium Potassium Carbon Dioxide BUN Creatinine Glucose POC Glucose 113 H Lactic Acid Total Creatine Kinase 51 L NT-Pro-B Natriuret Pep 8694 H 06/08/18 06/09/18 06/09/18 11:26 03:46 13:26 WBC MCV RDW Lymph % (Auto) [facility] % (Auto) Seg Neuts % (Manual) Lymphocytes % (Manual) Monocytes % (Manual) Eosinophils % (Manual) Seg Neutrophils # Man POC ABG pCO2 POC ABG pO2 Sodium Potassium Carbon Dioxide BUN 7 L Creatinine 0.5 L Glucose POC Glucose 107 H Lactic Acid Total Creatine Kinase 50 L NT-Pro-B Natriuret Pep 06/09/18 06/09/18 06/10/18 19:49 23:44 08:15 WBC 3.7 L MCV 96 H RDW 15.6 H Lymph % (Auto) [facility] % (Auto) Seg Neuts % (Manual) Lymphocytes % (Manual) Monocytes % (Manual) Eosinophils % (Manual) Seg Neutrophils # Man POC ABG pCO2 47.2 H POC ABG pO2 70 L Sodium Potassium Carbon Dioxide BUN Creatinine Glucose POC Glucose 109 H Lactic Acid Total Creatine Kinase NT-Pro-B Natriuret Pep 06/10/18 06/10/18 06/11/18 08:15 11:17 00:36 WBC MCV RDW Lymph % (Auto) [facility] % (Auto) Seg Neuts % (Manual) Lymphocytes % (Manual) Monocytes % (Manual) Eosinophils % (Manual) Seg Neutrophils # Man POC ABG pCO2 POC ABG pO2 Sodium 146 H Potassium Carbon Dioxide 31 H BUN Creatinine 0.7 L Glucose 131 H POC Glucose 146 H 137 H Lactic Acid Total Creatine Kinase NT-Pro-B Natriuret Pep 06/11/18 06/11/18 06/11/18 07:52 10:45 11:48 WBC MCV RDW Lymph % (Auto) [facility] % (Auto) Seg Neuts % (Manual) Lymphocytes % (Manual) Monocytes % (Manual) Eosinophils % (Manual) Seg Neutrophils # Man POC ABG pCO2 POC ABG pO2 Sodium 146 H Potassium 2.6 L* D Carbon Dioxide BUN Creatinine 0.6 L Glucose 160 H POC Glucose 156 H 151 H Lactic Acid Total Creatine Kinase NT-Pro-B Natriuret Pep 06/11/18 06/11/18 06/12/18 17:16 21:28 04:54 WBC 3.2 L MCV 96 H RDW 15.8 H Lymph % (Auto) [facility] % (Auto) Seg Neuts % (Manual) 38.0 L Lymphocytes % (Manual) 41.0 H Monocytes % (Manual) 9.0 H Eosinophils % (Manual) 6.0 H Seg Neutrophils # Man 1.2 L POC ABG pCO2 POC ABG pO2 Sodium Potassium Carbon Dioxide BUN Creatinine Glucose POC Glucose 151 H 180 H Lactic Acid Total Creatine Kinase NT-Pro-B Natriuret Pep 06/12/18 06/12/18 06/12/18 04:54 09:23 12:22 WBC MCV RDW Lymph % (Auto) [facility] % (Auto) Seg Neuts % (Manual) Lymphocytes % (Manual) Monocytes % (Manual) Eosinophils % (Manual) Seg Neutrophils # Man POC ABG pCO2 POC ABG pO2 Sodium 149 H Potassium 3.2 L D Carbon Dioxide BUN Creatinine 0.6 L Glucose 190 H POC Glucose 181 H 135 H Lactic Acid Total Creatine Kinase NT-Pro-B Natriuret Pep 06/12/18 06/13/18 06/13/18 23:27 05:49 12:09 WBC MCV RDW Lymph % (Auto) [facility] % (Auto) Seg Neuts % (Manual) Lymphocytes % (Manual) Monocytes % (Manual) Eosinophils % (Manual) Seg Neutrophils # [place] POC ABG pCO2 POC ABG pO2 Sodium Potassium Carbon Dioxide BUN Creatinine Glucose POC Glucose 108 H 154 H 183 H Lactic Acid Total Creatine Kinase NT-Pro-B Natriuret Pep 06/13/18 06/13/18 16:13 21:01 WBC MCV RDW Lymph % (Auto) [facility] % (Auto) Seg Neuts % (Manual) Lymphocytes % (Manual) Monocytes % (Manual) Eosinophils % (Manual) Seg Neutrophils # Man POC ABG pCO2 POC ABG pO2 Sodium Potassium Carbon Dioxide BUN Creatinine Glucose POC Glucose 242 H 136 H Lactic Acid Total Creatine Kinase NT-Pro-B Natriuret Pep Chest x-ray: report reviewed (Moderate cardiomegaly, venous congestion, bibasilar atelectasis.), image reviewed Allied health notes reviewed: nursing
[2018-06-14] MEDS: ZOSYN/NS 3.375GM/50ML 3.375 GM/50 ML BAG IV SCH ×4 (00:36→18:18)
--- NOTE | 2018-06-14 01:30 | XRay Report ---
FINAL REPORT EXAM: XR ABDOMEN 1V AP HISTORY: line placement TECHNIQUE: Supine AP view of the abdomen. PRIORS: None. FINDINGS: There is a feeding tube in place with the tip in the stomach. The visualized transverse colon appears moderately gas distended. The bones are unremarkable. IMPRESSION: Feeding tube tip in the stomach Nonspecific bowel gas pattern
[2018-06-14] MEDS: NITRO-BID 2% TP SCH ×4 (05:55→18:18)
[2018-06-14] MEDS: LOPRESSOR PO SCH ×2 (10:45→22:59)
[2018-06-14] MEDS: HALFPRIN EC PO SCH (10:45)
[2018-06-14] MEDS: ZESTRIL PO SCH (10:45)
[2018-06-14] MEDS: HEPARIN SUB-Q SCH ×2 (10:46→22:58)
[2018-06-14] MEDS: HumuLIN R SUB-Q SCH ×4 (10:46→22:58)
--- NOTE | 2018-06-14 15:16 | Progress Note ---
Assessment and Plan Paroxysmal atrial fibrillation with rapid ventricular response Acute HFrEF (heart failure with reduced ejection fraction) with Cardiomyopathy Respiratory distress Altered mental status with Advanced dementia HTN (hypertension), Chronic Diabetes type 2 Hypokalemia, severe DNR (do not resuscitate) - Monitor at IMCU - updated family at bedside in details, Pt was on hospice and is DNR code status. But family refused hospice and brought patient to the hospital - Echo showed EF 25-30%, cont PO lopressor via feeding tube, s/p cardizem gtt - Thyroid profile WNL. 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 - stop IV diuretics as pt now appears to be compensated. cont TF, DVT Px, repla ce electrolytes and monitor - s/p speech eval recommended NPO as he does not have swallow reflex - cont to provide supportive care - discussed in details with and she now agrees for taking patient back to hospice as his overall prognosis remained poor, CM notified - disposition pending on hospice set up Subjective Date of service: 06/13/18 Principal diagnosis: Paroxysmal A-Fib with RVR; Acute CHF (EF 25-30%); Acute Resp distress; AMS Interval history: Patient seen and examined more calm today, restarint, dobhoff on place Further recommended that hospice is more appropriate for him to , she agrees, CM notified pending hospice placement Objective - Exam Narrative Exam: General appearance: Present: mild distress - EENT Eyes: no scleral icterus, no conjunctival injection ENT: no dentition normal, no ulcerations Ears: bilateral: normal - Neck Neck: supple, normal ROM - Respiratory Respiratory: bilateral: diminished - Breasts Breasts: normal - Cardiovascular Rhythm: irregularly irregular Heart Sounds: Present: S1 & S2. Absent: gallop, rub Extremities: pulses intact, No edema, normal color, Full ROM - Gastrointestinal General gastrointestinal: Present: soft, non-tender, non-distended, normal bowel sounds - Integumentary Integumentary: clear, warm, dry - Musculoskeletal Musculoskeletal: generalized weakness - Neurologic Neurologic: moves all extremities - Psychiatric Psychiatric: no appropriate mood/affect, no intact judgment & insight, no memory intact, agitated - Constitutional Vitals: Vital Signs - 12hr 06/14/18 06/14/18 06/14/18 04:35 04:42 05:55 Temperature 98.0 F Pulse Rate 107 H 107 H Respiratory 18 Rate Blood Pressure 150/90 150/90 O2 Sat by Pulse Oximetry 06/14/18 06/14/18 06/14/18 08:07 08:26 12:11 Temperature 97.9 F 98.0 F Pulse Rate 115 H 77 Respiratory 18 18 Rate Blood Pressure 161/104 139/92 O2 Sat by Pulse 96 95 94 Oximetry - Labs CBC & Chem 7: 06/12/18 04:54 06/12/18 04:54 Labs: Abnormal lab results 06/13/18 06/13/18 06/14/18 Range/Units 16:13 21:01 06:19 POC Glucose 242 H 136 H 226 H (70-105) 06/14/18 Range/Units 12:14 POC Glucose 126 H (70-105)
--- NOTE | 2018-06-14 15:24 | Progress Note ---
Assessment and Plan Patient awake but not following commands. Patient is on room air.O2 saturation 98%. No acute respiratory distress. Weak and dementia. - Patient Problems (1) Pulmonary edema Current Visit: Yes Status: Acute Qualifiers: Chronicity: acute Qualified Code(s): J81.0 - Acute pulmonary edema Plan to address problem: Improved. No acute respiratory distress at rest. O2 saturation 98% on room air. (2) Respiratory distress Current Visit: Yes Status: Acute Plan to address problem: Recommend O2 2 litres via nasal canula. Albuterol aerosol treatments q 6 hours. Continue S/C heparin. Recommend protonix. (3) Acute HFrEF (heart failure with reduced ejection fraction) Current Visit: Yes Status: Acute Plan to address problem: Management as per cardiogy. (4) Cardiomyopathy Current Visit: Yes Status: Acute Qualifiers: Cardiomyopathy type: dilated Qualified Code(s): I42.0 - Dilated cardiomyopathy Plan to address problem: Managent as per cardiogy, (5) Paroxysmal atrial fibrillation with rapid ventricular response Current Visit: Yes Status: Acute Plan to address problem: Mangement as per cardiology. (6) Altered mental status Current Visit: Yes Status: Chronic Plan to address problem: Mangement as per primary care and neurology. (7) Diabetes Current Visit: Yes Status: Chronic Plan to address problem: Management as per primary care. (8) HTN (hypertension) Current Visit: Yes Status: Chronic Plan to address problem: Management as per primary care. Subjective Date of service: 06/14/18 Principal diagnosis: Paroxysmal A-Fib with RVR; Acute CHF (EF 25-30%); Acute Resp distress; AMS Interval history: Patient awake but not following commands. Patient is on room air.O2 saturation 98%. No acute respiratory distress. Weak and dementia. Objective Vital Signs - 12hr 06/14/18 06/14/18 06/14/18 04:35 04:42 05:55 Temperature 98.0 F Pulse Rate 107 H 107 H Respiratory 18 Rate Blood Pressure 150/90 150/90 O2 Sat by Pulse Oximetry 06/14/18 06/14/18 06/14/18 08:07 08:26 12:11 Temperature 97.9 F 98.0 F Pulse Rate 115 H 77 Respiratory 18 18 Rate Blood Pressure 161/104 139/92 O2 Sat by Pulse 96 95 94 Oximetry Constitutional: no acute distress, alert, other (Ptient demented. Not following commands.) Eyes: non-icteric ENT: oropharynx moist Neck: supple, no lymphadenopathy, no JVD Effort: mildly labored Ascultation: Bilateral: diminished breath sounds, rales (lung bases) Percussion: Bilateral: not dull Cardiovascular: irregular rhythm Gastrointestinal: normoactive bowel sounds, soft, non-tender, non-distended Integumentary: other (poor turgor) Extremities: no cyanosis, pulses normal, no ischemia or petechiae Neurologic: unable to assess Psychiatric: other (unable to assess) CBC and BMP: 06/12/18 04:54 06/12/18 04:54 ABG, PT/INR, D-dimer: ABG POC ABG pH 7.404 (7.35-7.45) 06/09/18 19:49 POC ABG pCO2 47.2 (35-45) H 06/09/18 19:49 POC ABG pO2 70 (80-105) L 06/09/18 19:49 POC ABG HCO3 29.5 06/09/18 19:49 POC ABG Total CO2 31 06/09/18 19:49 POC ABG O2 Sat 94 06/09/18 19:49 Abnormal lab findings: Abnormal Labs 06/08/18 06/08/18 06/08/18 02:51 02:51 02:51 WBC MCV 97 H RDW 15.7 H Lymph % (Auto) 49.0 H [place] % (Auto) 8.2 H Seg Neuts % (Manual) Lymphocytes % (Manual) Monocytes % (Manual) Eosinophils % (Manual) Seg Neutrophils # Man POC ABG pCO2 POC ABG pO2 Sodium Potassium Carbon Dioxide BUN Creatinine 0.5 L Glucose 144 H POC Glucose Lactic Acid 2.30 H* Total Creatine Kinase NT-Pro-B Natriuret Pep 06/08/18 06/08/18 06/08/18 02:56 05:41 07:29 WBC MCV RDW Lymph % (Auto) [place] % (Auto) Seg Neuts % (Manual) Lymphocytes % (Manual) Monocytes % (Manual) Eosinophils % (Manual) Seg Neutrophils # Man POC ABG pCO2 POC ABG pO2 Sodium Potassium Carbon Dioxide BUN Creatinine Glucose POC Glucose 113 H Lactic Acid Total Creatine Kinase 51 L NT-Pro-B Natriuret Pep 8694 H 06/08/18 06/09/1819 11:26 03:46 13:26 WBC MCV RDW Lymph % (Auto) [place] % (Auto) Seg Neuts % (Manual) Lymphocytes % (Manual) Monocytes % (Manual) Eosinophils % (Manual) Seg Neutrophils # Man POC ABG pCO2 POC ABG pO2 Sodium Potassium Carbon Dioxide BUN 7 L Creatinine 0.5 L Glucose POC Glucose 107 H Lactic Acid Total Creatine Kinase 50 L NT-Pro-B Natriuret Pep 06/09/18 06/09/18 06/10/18 19:49 23:44 08:15 WBC 3.7 L MCV 96 H RDW 15.6 H Lymph % (Auto) [place] % (Auto) Seg Neuts % (Manual) Lymphocytes % (Manual) Monocytes % (Manual) Eosinophils % (Manual) Seg Neutrophils # Man POC ABG pCO2 47.2 H POC ABG pO2 70 L Sodium Potassium Carbon Dioxide BUN Creatinine Glucose POC Glucose 109 H Lactic Acid Total Creatine Kinase NT-Pro-B Natriuret Pep 06/10/18 06/10/18 06/11/18 08:15 11:17 00:36 WBC MCV RDW Lymph % (Auto) [place] % (Auto) Seg Neuts % (Manual) Lymphocytes % (Manual) Monocytes % (Manual) Eosinophils % (Manual) Seg Neutrophils # Man POC ABG pCO2 POC ABG pO2 Sodium 146 H Potassium Carbon Dioxide 31 H BUN Creatinine 0.7 L Glucose 131 H POC Glucose 146 H 137 H Lactic Acid Total Creatine Kinase NT-Pro-B Natriuret Pep 06/11/18 06/11/18 06/11/18 07:52 10:45 11:48 WBC MCV RDW Lymph % (Auto) [place] % (Auto) Seg Neuts % (Manual) Lymphocytes % (Manual) Monocytes % (Manual) Eosinophils % (Manual) Seg Neutrophils # Man POC ABG pCO2 POC ABG pO2 Sodium 146 H Potassium 2.6 L* D Carbon Dioxide BUN Creatinine 0.6 L Glucose 160 H POC Glucose 156 H 151 H Lactic Acid Total Creatine Kinase NT-Pro-B Natriuret Pep 06/11/18 06/11/18 06/12/18 17:16 21:28 04:54 WBC 3.2 L MCV 96 H RDW 15.8 H Lymph % (Auto) [place] % (Auto) Seg Neuts % (Manual) 38.0 L Lymphocytes % (Manual) 41.0 H Monocytes % (Manual) 9.0 H Eosinophils % (Manual) 6.0 H Seg Neutrophils # Man 1.2 L POC ABG pCO2 POC ABG pO2 Sodium Potassium Carbon Dioxide BUN Creatinine Glucose POC Glucose 151 H 180 H Lactic Acid Total Creatine Kinase NT-Pro-B Natriuret Pep 06/12/18 06/12/18 06/12/18 04:54 09:23 12:22 WBC MCV RDW Lymph % (Auto) [place] % (Auto) Seg Neuts % (Manual) Lymphocytes % (Manual) Monocytes % (Manual) Eosinophils % (Manual) Seg Neutrophils # Man POC ABG pCO2 POC ABG pO2 Sodium 149 H Potassium 3.2 L D Carbon Dioxide BUN Creatinine 0.6 L Glucose 190 H POC Glucose 181 H 135 H Lactic Acid Total Creatine Kinase NT-Pro-B Natriuret Pep 06/12/18 06/13/18 06/13/18 23:27 05:49 12:09 WBC MCV RDW Lymph % (Auto) [place] % (Auto) Seg Neuts % (Manual) Lymphocytes % (Manual) Monocytes % (Manual) Eosinophils % (Manual) Seg Neutrophils # Man POC ABG pCO2 POC ABG pO2 Sodium Potassium Carbon Dioxide BUN Creatinine Glucose POC Glucose 108 H 154 H 183 H Lactic Acid Total Creatine Kinase NT-Pro-B Natriuret Pep 06/13/18 06/13/18 06/14/18 16:13 21:01 06:19 WBC MCV RDW Lymph % (Auto) [place] % (Auto) Seg Neuts % (Manual) Lymphocytes % (Manual) Monocytes % (Manual) Eosinophils % (Manual) Seg Neutrophils # Man POC ABG pCO2 POC ABG pO2 Sodium Potassium Carbon Dioxide BUN Creatinine Glucose POC Glucose 242 H 136 H 226 H Lactic Acid Total Creatine Kinase NT-Pro-B Natriuret Pep 06/14/18 12:14 WBC MCV RDW Lymph % (Auto) [place] % (Auto) Seg Neuts % (Manual) Lymphocytes % (Manual) Monocytes % (Manual) Eosinophils % (Manual) Seg Neutrophils # Man POC ABG pCO2 POC ABG pO2 Sodium Potassium Carbon Dioxide BUN Creatinine Glucose POC Glucose 126 H Lactic Acid Total Creatine Kinase NT-Pro-B Natriuret Pep Allied health notes reviewed: nursing
[2018-06-14] MEDS: REMERON PO SCH ×2 (22:57→23:02)
[2018-06-14] MEDS: RisperDAL PO SCH ×2 (22:58→22:59)
[2018-06-15] MEDS: ZOSYN/NS 3.375GM/50ML 3.375 GM/50 ML BAG IV SCH ×3 (00:15→13:49)
[2018-06-15] MEDS ORDERED: VASOTEC IV PRN (01:53)
[2018-06-15] MEDS: NITRO-BID 2% TP SCH ×2 (06:31→10:46)
[2018-06-15] MEDS: HumuLIN R SUB-Q SCH (07:53)
[2018-06-15 10:13] VITALS: BP 145/87
[2018-06-15] MEDS: HALFPRIN EC PO SCH (10:37)
[2018-06-15] MEDS: LOPRESSOR PO SCH (10:37)
[2018-06-15] MEDS: ZESTRIL PO SCH (10:37)
[2018-06-15] MEDS: HEPARIN SUB-Q SCH (10:38)
== END 2018-06-15 14:45 | disposition hospice, home (50) | DRG 291 ==
LOC: ED 02:07 → 4A 04:54 → CC1 17:59 → IMCU 06-10 19:06 → 4A 06-12 15:40
PROVIDERS: ADMIT Internal Medicine; ATTEND Internal Medicine
PROC: 4A033R1 Measurement of Arterial Saturation, Peripheral, Percutaneous Approach (ICD-10-PCS; principal; 2018-06-09)
DX: I11.0 Hypertensive heart disease with heart failure (principal); I50.21 Acute systolic (congestive) heart failure; E87.0 Hyperosmolality and hypernatremia; F02.81 Dementia in other diseases classified elsewhere, unspecified severity, with behavioral disturbance; I42.0 Dilated cardiomyopathy; I48.0 Paroxysmal atrial fibrillation; E11.9 Type 2 diabetes mellitus without complications; E87.6 Hypokalemia; Z66 Do not resuscitate; Z79.82 Long term (current) use of aspirin; Z79.899 Other long term (current) drug therapy; G30.9 Alzheimer's disease, unspecified
CPT/HCPCS: 36415; 36600; 71045; 74018; 80048; 80053; 81001; 82140; 82550; 82553; 82803; 82962; 83735; 83880; 84439; 84443; 84484; 85007; 85025; 85027; 87040; 93005; 93010; 93306; 94760; 96365; 96366; 96375; G0378; J1630; J1644; J1815; J1940; J2060; J2270; J2543; J3480; J7040